=== PATIENT | female | born 1970 | race Caucasian/White ===

== ENCOUNTER 2021-01-15 12:17 | Inpatient (IN) | payer OTHER ==
[~2021-01-15] VITALS: Ht 162.6 cm; Wt 70.5 kg
[2021-01-15 13:35] LABS: HEMATOCRIT 44.6 % (36.0-47.0); HEMOGLOBIN 15.2 g/dl (12.0-15.5); MEAN CORPUSCULAR HEMOGLOBIN 28.5 pg (27.0-33.0); MEAN CORPUSCULAR HGB CONC 34.1 g/dl (32.0-36.5); MEAN CORPUSCULAR VOLUME 83.7 fl (80.0-96.0); PLATELET COUNT, AUTOMATED 314 10^3/uL (150-450); RED BLOOD COUNT 5.33 10^6/uL (4.00-5.40); WHITE BLOOD COUNT 12.5 10^3/uL (4.0-10.0)
[2021-01-15] MEDS ORDERED: LORazepam 1 MG TAB PO STA (13:53)
[2021-01-15] MEDS ORDERED: OLANZapine ORAL DISINTEGRATING TAB 5MG PO ONE (13:55)
[2021-01-15 14:08] LABS: ACETAMINOPHEN LEVEL < 2.0 UG/ML (10.0-30.0); ALBUMIN 3.8 GM/DL (3.2-5.2); ALT/SGPT 22 U/L (12-78); BILIRUBIN,DIRECT 0.1 MG/DL (0.0-0.2); BILIRUBIN,TOTAL 0.5 MG/DL (0.2-1.0); BLOOD UREA NITROGEN 9 MG/DL (7-18); CALCIUM LEVEL 8.5 MG/DL (8.5-10.1); CARBON DIOXIDE LEVEL 24 MEQ/L (21-32); CHLORIDE LEVEL 108 MEQ/L (98-107); CREATININE FOR GFR 0.78 MG/DL (0.55-1.30); ETHYL ALCOHOL (ETHANOL) < 0.003 % (0.000-0.010); GLOMERULAR FILTRATION RATE > 60.0 (>58); GLUCOSE, FASTING 122 MG/DL (70-100); POTASSIUM SERUM 3.4 MEQ/L (3.5-5.1); SALICYLATE LEVEL < 1.7 MG/DL (5.0-30.0); SODIUM LEVEL 141 MEQ/L (136-145); THYROID STIMULATING HORMONE 0.743 uIU/ML (0.358-3.740); TOTAL PROTEIN 7.8 GM/DL (6.4-8.2)
[2021-01-15 14:10] LABS: AMPHETAMINES LEVEL URINE NEGATIVE (NEGATIVE); BARBITURATES URINE NEGATIVE (NEGATIVE); BENZODIAZEPINES URINE NEGATIVE (NEGATIVE); CANNABINOIDS URINE NEGATIVE (NEGATIVE); COCAINE METABOLITE URINE NEGATIVE (NEGATIVE); METHADONE URINE NEGATIVE (NEGATIVE); OPIATES URINE NEGATIVE (NEGATIVE); PHENCYCLIDINE URINE NEGATIVE (NEGATIVE)
[2021-01-15 14:12] LABS: HCG, SERUM QUALITATIVE NEGATIVE (NEGATIVE)
[2021-01-15] MEDS ORDERED: ACETAMINOPHEN TAB 650MG DOSE (2X325MG) PO PRN (19:10)
[2021-01-15] MEDS ORDERED: traZODone 50 MG TAB PO PRN (19:10)
[2021-01-15] MEDS ORDERED: OLANZapine ORAL DISINTEGRATING TAB 5MG PO PRN (19:10)
[2021-01-15] MEDS ORDERED: MOM 30ML SUSPENSION UDC PO PRN (19:10)
[2021-01-15] MEDS ORDERED: MAALOX 30 ML SUSP *UDC PO PRN (19:10)
[2021-01-15 20:13] LABS: RSV AMPLIFICATION NEGATIVE (NEGATIVE)
[2021-01-15] MEDS ORDERED: risperiDONE 2 MG TAB PO SCH (21:00)
[2021-01-16] MEDS: NICOTINE 21MG/24HR 1 EA TRANSDERMAL TD SCH (08:48)
--- NOTE | 2021-01-16 13:26 | HPEPDOC ---
[facility] Medical History & Physical Date of Admission January 15, 2021 Date of Service: January 16, 2021 History and Physical CHIEF COMPLAINT: Routine medical exam HISTORY OF PRESENT ILLNESS: 50-year-old female with history of Graves' disease follows with an intravenous therapy nurse in [place], asthma, COPD, not oxygen or steroid dependent, admitted to the inpatient [facility] unit due to inability to care for self defecating and urinating on the floor at home. The patient otherwise denies any dysuria, urgency, frequency, fever, chills, shortness of breath, chest pain, pressure, tightness, palpitations, lightheadedness. She says that sometimes is hard to breathe through her throat but denies any dysphasia, odynophagia and follows with an intravenous therapy nurse in [place]. No other issues with airway compromise. PAST MEDICAL HISTORY: Graves' disease, asthma, COPD PAST SURGICAL HISTORY: SOCIAL HISTORY: Still smokes cigarettes. 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 Mother alive in her 70s, unknown medical problems ALLERGIES: Please see below. REVIEW OF SYSTEMS: 10 point review of systems negative aside from positive findings in HPI HOME MEDICATIONS: Please see below. PHYSICAL EXAMINATION: VITAL SIGNS: See below GENERAL APPEARANCE: No distress. Speaks in full sentences. No use of respiratory accessory muscles disheveled HEENT: No thyromegaly, no cervical lymphadenopathy. No JVD. Pupils round, reactive. Extra muscles are intact CARDIOVASCULAR: S1, S2, sinus rhythm LUNGS: Air entry is equal. No kyphosis. No wheezing, rales or rhonchi. Clear to auscultation bilaterally ABDOMEN: Positive bowel sounds, soft, nontender, nondistended, normoactive bowel sounds EXTREMITIES: No cyanosis, clubbing or edema LABORATORY DATA: See below. MICROBIOLOGY: Please see below. ASSESSMENT: 50-year-old female with history of Graves' disease follows with an intravenous therapy nurse in [place], asthma, COPD, not oxygen or steroid dependent, admitted to the inpatient [facility] unit due to inability to care for self defecating and urinating on the floor at home. The patient otherwise denies any dysuria, urgency, frequency, fever, chills, shortness of breath, chest pain, pressure, tightness, palpitations, lightheadedness. She says that sometimes is hard to breathe through her throat but denies any dysphasia, odynophagia and follows with an intravenous therapy nurse in [place]. No other issues with airway compromise. Graves' disease Asthma COPD Psychosis Tobacco abuse PLAN: If patient complains of worsening respiratory distress. Obtain CT neck with contrast, rule out airway compromise. TSH is normal. No changes in medications. Tobacco cessation counseling and nicotine patch. Outpatient follow-up with her intravenous therapy nurse within 1-2 weeks of hospital discharge. Hospitalists will sign off. Please reconsult if new medical issues arise. Vital Signs Vital Signs Date Time Temp Pulse Resp B/P (MAP) Pulse Ox O2 Delivery O2 Flow Rate FiO2 01/15/21 19:30 98.4 92 17 150/72 (98) 98 Room Air Laboratory Data Labs 24H Laboratory Tests 2 01/15/21 18:41: Coronavirus (COVID-19)(PCR) NEGATIVE, Influenza Type A (RT-PCR) NEGATIVE, Influenza Type B (RT-PCR) NEGATIVE, Respiratory Syncytial Virus (PCR) NEGATIVE Home Medications No Active Prescriptions or Reported Meds Allergies Coded Allergies: No Known Allergies (Unverified , 01/15/21) A-FIB/CHADSVASC A-FIB History Current/History of A-Fib/PAF?: No Current PO Anticoag Therapy: No Age/Risk Factor Scoring CHADSVASC: CHADSVASC Response (Comments) Value Age Risk Factor Age < 65 years old 0 Gender Risk Factor Female 1 Hx of CHF No 0 Hx of HTN No 0 Hx of Stroke/TIA/or VTE No 0 Hx of Diabetes No 0 Hx of Vascular Disease No 0 Total 1 Treatment Treatment ordered: NONE EMY HILL MD January 16, 2021 13:26
--- NOTE | 2021-01-16 15:14 | MHHPEPDOC ---
General Date Of Admission: January 15, 2021 Legal Status: 9.39 Chief Complaint "I have no idea why I am here." History of Present Illness HISTORY OF THE PRESENT ILLNESS: Patient is a 50 -year-old , Unemployed, Domiciled , female who was brought in by her mother for bizarre behaviors, delusional thinking and psychotic symptoms of auditory hallucinations. According to the ED report, patient is currently visiting her mother in family currently resides in [place]. Patient has been in the area for roughly a week. . She did not come out of her room, started using a bucket, and her room for toilet using it to urinate and then began defecating on the floor. She was making bizarre statements, stating that she will if she leaves the house. Reports that she has thyroid issues and irritable freeze her throat in the interview today. She reports that she is having trouble breathing and that her trachea is narrowing. She reported to me that she has stage IV COPD, and that she needed to be brought to the hospital because she is living with 13 other people and 5 dogs in the home making her have difficulty breathing. She states, "I have thyroid disease." Patient was very repetitive in her interview with me, stating "I have thyroid issues and have an advanced stage of COPD and have narrowing of the trachea. I have to leave because I then a [place] citizen and a resident of [place] and my is coming to get me tomorrow." Patient is not observed with any shortness of breath or difficulty breathing. She is however very hyperverbal, tangential, has rapid speech and is speaking in full and complete sentences. PER ED REPORT: Police report linda is visiting her mother (Brenna [phone]) and family (sister in law, [phone]) from [place]. Pt. sister in law reports pt. has been in area for almost one week, has been staying in her room almost exclusively. Pt. has been using bucket in her room for a toilet, has started to urinate and defecate on floor also. Pt. states she will if she leaves the house, states she has thyroid issues and that the air will freeze her throat. She has not been bathing. She has been stating that the haley and mirror are talking to her and the house is doing things to her. Sister in law states that pt. does not have a psychiatric diagnosis because she has refused to see a therapist or psychiatrist, stating her and family has thought for some time that she was in need. contact # pat-[phone]. Pt was brought in by [facility] per mother and sister. Pt has been decompensating, defecating and urinating on the floor of her bedroom, and AH, talking to haley, mirrors, and her hands. Pt brought in by [facility] after pt.s sister called the police. Pt has reportedly been going to the bathroom in buckets or on the floor of her bedroom, has been having outbursts of anger and agitation, AH, and bizarre behavior. Pt's appears disheveled and unkempt, speech is repetitive and unfocused, pressured and disorganized. Pt has to be redirected multiple times during MHE. Pt denies SI/HI, AH/VH, reports normal sleep and appetite. Pt states "I have narrowing airways, so it is really hard for me to breathe. I don't go on the stairs very well, and there are 13 people living in the house so the bathroom is full." Pt repeatedly states "I am here for my thyroid, but I am due back in [place] in a few days, so I am going to leave with my sister." TW spoke with pt.s sister Diana: Diana was in room with pt. Pt's sister reported that pt. has not received any mental health treatment or care in her life. Pt has been struggling for the last 5 years, with the last 3 years getting increasingly worse. Pt lives in [place] with her and her 2 sons, but is in [place] visiting her mother and sister. Pt's sister reports that pt. has been refusing medical treatment and skipping out on her doctors appointments for her medical complications, thyroid related. Pt's sister explains that the family has been struggling to get pt. any care or treatment in [place] and [place] for the last 5 years, this is their last option. Pt's sister states she has not left her room in approximately a week, since getting to [place]. Psychiatric Review of Systems Depression (2 or more weeks): difficulty concentrating, denies (denies clinical depression but reports taht her medical complications make her feel depressed) Janice (4 or more days of): talkativity, pressured, distractibility Psychosis: auditory hallucination, delusions, paranoia, disorganization PTSD: denies Past Psychiatric History Previous Psychiatric Diagnosis: Denies Previous Psychiatric Admissions:, Says her first psychiatric admission. Suicide Attempts:. Denies. Psychiatric Follow-up: None current. Psychiatric medications:. Denies any medications for psychiatry. Past Medical History Head Injury: No Seizures: No Hospitalizations: Yes Surgeries: Yes (. ) Family Medical/Psychiatric HX Psychiatric Disorders: Yes (. Mother thyroid issues and anxiety. Brother and sister with anger issues) Addiction: No Suicide Attemps/Completions: No Addiction History denies Social History Childhood: Patient was born in [facility] to both mother and father; states that she has a sister and a brother. Abuse/Trauma:. Denies any history of trauma. Current Living Situation:. Patient is currently staying with her mother with whom she it's visiting but she is from [place] with her . Education:. States that she received her GED in [facility]. Employment:, Not currently employed. Reports that she is ex-. 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 Social Support: Mother, sister and . Legal: None. Marital: . currently in [place] to pick her up when she is stable. Mental Status Examination General Appearance: disheveled, appears stated age, hospital scubs/clothing Build: overweight Demeanor: mistrustful (, mildly overweight), guarded Eye Contact: avoidant (patient had a blanket over her head. Most of the interview) Activity: average Behavior: cooperative Speech: clear, rapid, reg/rate,rhythm,volume Mood: other (making bizarre in delusional statements) Affect: flat, incongruent, disorganized Thought Process: tangential, loose Thought Content (Delusions): denies SI, HI, AVH, paranoia, delusions Thought Content (Other): preoccupied (somatic ), obsessional, guarded, appears paranoid Thought Content (Aggressive): none reported Perception (Hallucinations): auditory Cognition (Impairment of): memory, attention/concentration Cognition(Intelligence Est.): average Oriented: Awake, Alert, Oriented times three Insight: poor Judgment: Poor Psychosis: Denies Diagnoses Unspecified psychotic disorder Hyperthyroid Graves' disease A-FIB/CHADSVASC A-FIB History Current/History of A-Fib/PAF?: No Current PO Anticoag Therapy: No Age/Risk Factor Scoring CHADSVASC: CHADSVASC Response (Comments) Value Age Risk Factor Age < 65 years old 0 Gender Risk Factor Female 1 Hx of CHF No 0 Hx of HTN No 0 Hx of Stroke/TIA/or VTE No 0 Hx of Diabetes No 0 Hx of Vascular Disease No 0 Total 1 Assessment Patient is a 50-year-old , styled female who is currently visiting her mother from [place]. Patient has been in the area for approximately a week and her family is reporting that she stayed in her room exclusively only uses in a bucket in her room for a toilet urinating and defecating on the floor as she would if she left the home. She repeatedly states that she has thyroid issues and that her trachea is narrowing in the cold air would freeze her throat. She is quite disheveled. Hair is uncombed and she appears older than her stated age, wearing hospital scrubs. Her build is mildly overweight. She has a mistrustful and guarded demeanor. Her eye contact is avoidant throughout most of the interview, had a blanket over her head. Her activity is less than average. Her behavior was mostly cooperative, although she was guarded. Speech was rapid, spontaneous, fluid, normal volume, tone and rhythm. She reports that her mood is depressed, due to medical conditions. Her affect is inappropriate and disorganized and flat. Her thought process is loose with flight of ideas, tangential. Patient is very delusional, reporting that she has tracheal stenosis, reports that cold air will freeze her breath. She is quite paranoid. She appears guarded. She does not report any auditory or visual hallucinations, but her family did report auditory hallucinations when they brought her in her cognition is average. She is alert and oriented to person, place, time, but not to situation. Her insight and judgment is poor at this time. Patient will be admitted to my service 939 legal status. We'll start her on antipsychotic medications and medications for any agitation or anxiety. Patient to be discharged to home where we will call her spouse pick her up and bring her back to [place] when she is stable. . He is aware of her being hospitalized. He is requesting that she be completely stabilized before he is called states that she has a long history of decompensation, and he is hopeful that she will have a full recovery Initial Treatment Plan 1. Patient was admitted on a [9.39] status. 2. Complete history was obtained. 3. With patients permission, family will be contacted and database will be expanded. 4. Patients medication regimen will be reviewed and changed accordingly. 5. Patient will be provided with protected environment. 6. Patient will be treated with individual, group, and milieu therapies. 7. Patient will receive supportive psych-education. 8. Discharge planning will commence immediately. 9. Outpatient follow-up treatment will be strongly recommended. 10. The initial treatment plan will focus initially on: * Depression. * Risk for suicide. ESTIMATED LENGTH OF STAY: - DAYS. TIME SPENT COUNSELING AND COORDINATING INITIAL CARE: minutes. Incomplete r/t Pt cond. Vital Signs Vital Signs Date Time Temp Pulse Resp B/P (MAP) Pulse Ox O2 Delivery O2 Flow Rate FiO2 01/15/21 19:30 98.4 92 17 150/72 (98) 98 Room Air Laboratory Data 24H Labs Laboratory Tests 2 01/15/21 18:41: Coronavirus (COVID-19)(PCR) NEGATIVE, Influenza Type A (RT-PCR) NEGATIVE, Influenza Type B (RT-PCR) NEGATIVE, Respiratory Syncytial Virus (PCR) NEGATIVE Medications No Active Prescriptions or Reported Meds Allergies Coded Allergies: No Known Allergies (Unverified , 01/15/21) NEVIN FAY NP January 16, 2021 15:14
[2021-01-16] MEDS ORDERED: BENZTROPINE 0.5 MG TAB PO PRN (15:15)
[2021-01-16] MEDS ORDERED: hydrOXYzine 50 MG TAB PO PRN (15:15)
[2021-01-16 16:13] VITALS: BP 155/75
[2021-01-16] MEDS: haloperidoL 5 MG TAB PO SCH (21:00)
[2021-01-17 06:53] VITALS: BP 151/75
[2021-01-17] MEDS: NICOTINE 21MG/24HR 1 EA TRANSDERMAL TD SCH (09:00)
[2021-01-17] MEDS: haloperidoL 5 MG TAB PO SCH ×2 (09:34→21:00)
--- NOTE | 2021-01-17 12:29 | MHIPNPDOC ---
[facility] Progress Note Progress Note DATE OF SERVICE: 01/17/21 HISTORY: Patient is a 50 -year-old , Unemployed, Domiciled , female who was brought in by her mother for bizarre behaviors, delusional thinking and psychotic symptoms of auditory hallucinations. According to the ED report, patient is currently visiting her mother in family currently resides in [place]. Patient has been in the area for roughly a week. . She did not come out of her room, started using a bucket, and her room for toilet using it to urinate and then began defecating on the floor. She was making bizarre statements, stating that she will if she leaves the house. Reports that she has thyroid issues and irritable freeze her throat in the interview today. She reports that she is having trouble breathing and that her trachea is narrowing. She reported to me that she has stage IV COPD, and that she needed to be brought to the hospital because she is living with 13 other people and 5 dogs in the home making her have difficulty breathing. She states, "I have thyroid disease." Patient was very repetitive in her interview with me, stating "I have thyroid issues and have an advanced stage of COPD and have narrowing of the trachea. I have to leave because I then a [place] citizen and a resident of [place] and my is coming to get me tomorrow." Patient is not observed with any shortness of breath or difficulty breathing. She is however very hyperverbal, tangential, has rapid speech and is speaking in full and complete sentences. PER ED REPORT: Police report linda is visiting her mother (Brenna [phone]) and family (sister in law, [phone]) from [place]. Pt. sister in law reports pt. has been in area for almost one week, has been staying in her room almost exclusively. Pt. has been using bucket in her room for a toilet, has started to urinate and defecate on floor also. Pt. states she will if she leaves the house, states she has thyroid issues and that the air will freeze her throat. She has not been bathing. She has been stating that the haley and mirror are talking to her and the house is doing things to her. Sister in law states that pt. does not have a psychiatric diagnosis because she has refused to see a therapist or psychiatrist, stating her and family has thought for some time that she was in need. contact # pat-[phone]. Pt was brought in by [facility] per mother and sister. Pt has been decompensating, defecating and urinating on the floor of her bedroom, and AH, talking to haley, mirrors, and her hands. Pt brought in by [facility] after pt.s sister called the police. Pt has reportedly been going to the bathroom in buckets or on the floor of her bedroom, has been having outbursts of anger and agitation, AH, and bizarre behavior. Pt's appears disheveled and unkempt, speech is repetitive and unfocused, pressured and disorganized. Pt has to be redirected multiple times during MHE. Pt denies SI/HI, AH/VH, reports normal sleep and appetite. Pt states "I have narrowing airways, so it is really hard for me to breathe. I don't go on the stairs very well, and there are 13 people living in the house so the bathroom is full." Pt repeatedly states "I am here for my thyroid, but I am due back in [place] in a few days, so I am going to leave with my sister." TW spoke with pt.s sister Diana: Diana was in room with pt. Pt's sister reported that pt. has not received any mental health treatment or care in her life. Pt has been struggling for the last 5 years, with the last 3 years getting increasingly worse. Pt lives in [place] with her and her 2 sons, but is in [place] visiting her mother and sister. Pt's sister reports that pt. has been refusing medical treatment and skipping out on her doctors appointments for her medical complications, thyroid related. Pt's sister explains that the family has been struggling to get pt. any care or treatment in [place] and [place] for the last 5 years, this is their last option. Pt's sister states she has not left her room in approximately a week, since getting to [place]. VITAL SIGNS: See below. NEW TEST RESULTS: Patient has refused to be seen for a Thyroid Ultrasound CURRENT MEDICATIONS: See below. MENTAL STATUS EXAMINATION: Patient is a 50 -year-old , Unemployed, Domiciled , female who was brought in by her mother for bizarre behaviors, delusional thinking and psychotic symptoms of auditory hallucinations. General Appearance: disheveled, appears stated age, hospital scubs/clothing Build: overweight Demeanor: mistrustful (, mildly overweight), guarded Eye Contact: avoidant (patient had a blanket over her head. Most of the interview) Activity: average Behavior: cooperative Speech: clear, rapid, reg/rate,rhythm,volume Mood: other (making bizarre in delusional statements) Affect: flat, incongruent, disorganized Thought Process: tangential, loose Thought Content (Delusions): denies SI, HI, AVH, paranoia, delusions Thought Content (Other): preoccupied (somatic ), obsessional, guarded, somatic, paranoid Thought Content (Aggressive): none reported Perception (Hallucinations): auditory Cognition (Impairment of): memory, attention/concentration Cognition(Intelligence Est.): average Oriented: Awake, Alert, Oriented times three Insight: poor Judgment: Poor Psychosis: Denies DIAGNOSES: Unspecified psychotic disorder Hyperthyroid Graves' disease ASSESSMENT: Patient found sleeping in her room. 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 I have problems with my thyroid and goiter. I can't breathe cold air because it is causing my shortness of breathe, I am having difficulty breathing, I have COPD." She reports that her is coming from [place] to pick her up today, also states that her son was in a car accident and that she needs to return home. States that her drinks and that he is not a good collateral for her health issues. Patient continues to report that she is having difficulty breathing but she is hyperverbal and tangential and is speaking in full in complete sentences without difficulty. Her breathing is regular and full expansion of her diaphragm. Per her family, she has been having somatic complaints for several years but has refused to be seen by any providers. Patient continues to demonstrate poor insight and judgement and psychotic symptoms. MANAGEMENT PLAN: Continue all medications as ordered. Patient to start Zoloft 25 mg daily for her report of depression. Discharge when stable TIME SPENT: 25 minutes. Vital Signs Vital Signs Date Time Temp Pulse Resp B/P (MAP) Pulse Ox O2 Delivery O2 Flow Rate FiO2 01/17/21 06:53 99.7 86 17 151/75 (100) 96 Room Air Current Medications Current Medications Medications (Trade) Dose Ordered Sig/Pearl Route PRN Reason Start Time Stop Time Status Last Admin Dose Admin Acetaminophen (Tylenol Tab) 650 mg Q6HP PRN PO HEADACHE or DISCOMFORT 01/15/21 19:10 Al Hydrox/Mg Hydrox/Simethicone (Mylanta) 30 ml Q4HP PRN PO HEARTBURN/INDIGESTION 01/15/21 19:10 Benztropine Mesylate (Cogentin) 0.5 mg BIDP PRN PO EPS 01/16/21 15:15 Haloperidol (Haldol) 5 mg BID PO 01/16/21 21:00 01/17/21 09:34 Home Med (Med Rec Complete!) ASDIRECTED XX 01/15/21 19:55 01/15/21 19:58 DC Hydroxyzine HCl (Atarax) 50 mg Q6HP PRN PO ANXIETY 01/16/21 15:15 Lorazepam (Ativan) 1 mg STAT STAT PO 01/15/21 13:53 01/15/21 13:54 DC 01/15/21 18:50 Magnesium Hydroxide (Milk Of Magnesia) 30 ml DAILYPRN PRN PO CONSTIPATION 01/15/21 19:10 Nicotine (Nicoderm Cq 21mg) 1 patch DAILY TD 01/16/21 09:00 Olanzapine (ZyPREXA ZYDIS) 5 mg Q6HP PRN PO ANXIETY/AGITATION 01/15/21 19:10 Risperidone (RisperDAL) 2 mg QHS PO 01/15/21 21:00 01/16/21 15:16 DC 01/15/21 21:18 Trazodone HCl (Desyrel) 50 mg QHSP PRN PO INSOMNIA 01/15/21 19:10 Allergies Coded Allergies: No Known Allergies (Unverified , 01/15/21) NEVIN FAY GIZZARD PEELER January 17, 2021 12:29
[2021-01-17] MEDS: SERTRALINE HCL 25 MG TABLET PO SCH (12:54)
[2021-01-17 16:21] VITALS: BP 140/73
[2021-01-18 06:32] VITALS: BP 158/70
[2021-01-18] MEDS: NICOTINE 21MG/24HR 1 EA TRANSDERMAL TD SCH (09:00)
[2021-01-18] MEDS: SERTRALINE HCL 25 MG TABLET PO SCH (09:57)
[2021-01-18] MEDS: haloperidoL 5 MG TAB PO SCH ×2 (09:57→20:50)
--- NOTE | 2021-01-18 13:03 | MHIPNPDOC ---
[facility] Progress Note Progress Note DATE OF SERVICE: 01/18/21 HISTORY: Patient is a 50 -year-old , Unemployed, Domiciled , female who was brought in by her mother for bizarre behaviors, delusional thinking and psychotic symptoms of auditory hallucinations. According to the ED report, patient is currently visiting her mother in family currently resides in [place]. Patient has been in the area for roughly a week. . She did not come out of her room, started using a bucket, and her room for toilet using it to urinate and then began defecating on the floor. She was making bizarre stat ements, stating that she will if she leaves the house. Reports that she has thyroid issues and irritable freeze her throat in the interview today. She reports that she is having trouble breathing and that her trachea is narrowing. She reported to me that she has stage IV COPD, and that she needed to be brought to the hospital because she is living with 13 other people and 5 dogs in the home making her have difficulty breathing. She states, "I have thyroid disease." Patient was very repetitive in her interview with me, stating "I have thyroid issues and have an advanced stage of COPD and have narrowing of the trachea. I have to leave because I then a [place] citizen and a resident of [place] and my is coming to get me tomorrow." Patient is not observed with any shortness of breath or difficulty breathing. She is however very hyperverbal, tangential, has rapid speech and is speaking in full and complete sentences. PER ED REPORT: Police report linda is visiting her mother (Brenna [phone]) and family (sister in law, Sejsa-[phone]) from [place]. Pt. sister in law reports pt. has been in area for almost one week, has been staying in her room almost exclusively. Pt. has been using bucket in her room for a toilet, has started to urinate and defecate on floor also. Pt. states she will if she leaves the house, states she has thyroid issues and that the air will freeze her throat. She has not been bathing. She has been stating that the haley and mirror are talking to her and the house is doing things to her. Sister in law states that pt. does not have a psychiatric diagnosis because she has refused to see a therapist or psychiatrist, stating her and family has thought for some time that she was in need. contact # pat-[phone]. Pt was brought in by [facility] per mother and sister. Pt has been decompensating, defecating and urinating on the floor of her bedroom, and AH, talking to haley, mirrors, and her hands. Pt brought in by [facility] after pt.s sister called the police. Pt has reportedly been going to the bathroom in buckets or on the floor of her bedroom, has been having outbursts of anger and agitation, AH, and bizarre behavior. Pt's appears disheveled and unkempt, speech is repetitive and unfocused, pressured a nd disorganized. Pt has to be redirected multiple times during MHE. Pt denies SI/HI, AH/VH, reports normal sleep and appetite. Pt states "I have narrowing airways, so it is really hard for me to breathe. I don't go on the stairs very well, and there are 13 people living in the house so the bathroom is full." Pt repeatedly states "I am here for my thyroid, but I am due back in [place] in a few days, so I am going to leave with my sister." VITAL SIGNS: See below. CURRENT MEDICATIONS: See below. MENTAL STATUS EXAMINATION: Patient is a 50 -year-old , Unemployed, Domiciled , female who was brought in by her mother for bizarre behaviors, delusional thinking and psychotic symptoms of auditory hallucinations. Speech: Is spontaneous, impoverished, slow rate and low volume Language skills are intact Thought processes including: disorganized at times Thought content: denies depression, anxiety, SI/HI Abstract reasoning, and computation: fair Description of associations: somatic complaints about sh ortness of breathe Description of abnormal or psychotic thoughts: Delusional thoughts about her trachea being too small. Judgment: poor Insight: poor Orientation: Alert and oriented to person, place. time but not to situation Recent and remote memory: intact Attention span and concentration: fair Language: expansive Fund of knowledge: average Mood: Euthymic Affect: Flat DIAGNOSES: Unspecified psychotic disorder Hyperthyroid Graves' disease ASSESSMENT: Patient found in her room, blanket over her head, does not engage in the interview. Patient answer yes to all the questions, was asked to pull blanket from her head, appears apathetic, disheveled and unkempt. Patient is continuing her behaviors of staying in her room. She was encouraged to be out of the room, attend groups and take all medications. Reinforced with her that following treatment will stabilize her and she will be discharged. Reinforced that her poor compliance to treatment and continued instability will delay her return to [place]. Patient had refused two doses of Haldol. Patient continues to have delusional thoughts about her breathing and tracheal stenosis. She states that she cannot breathe, has difficulty breathing as she speaks in full and clear sentences with no posturing, no cyanotic symptoms. MANAGEMENT PLAN: Continue all medications, will discharge when stable TIME SPENT: 25 minutes. Vital Signs Vital Signs Date Time Temp Pulse Resp B/P (MAP) Pulse Ox O2 Delivery O2 Flow Rate FiO2 01/18/21 06:32 98.2 73 20 158/70 (99) 95 Room Air Current Medications Current Medications Medications (Trade) Dose Ordered Sig/Pearl Route PRN Reason Start Time Stop Time Status Last Admin Dose Admin Acetaminophen (Tylenol Tab) 650 mg Q6HP PRN PO HEADACHE or DISCOMFORT 01/15/21 19:10 Al Hydrox/Mg Hydrox/Simethicone (Mylanta) 30 ml Q4HP PRN PO HEARTBURN/INDIGESTION 01/15/21 19:10 Benztropine Mesylate (Cogentin) 0.5 mg BIDP PRN PO EPS 01/16/21 15:15 Haloperidol (Haldol) 5 mg BID PO 01/16/21 21:00 01/18/21 09:57 Home Med (Med Rec Complete!) ASDIRECTED XX 01/15/21 19:55 01/15/21 19:58 DC Hydroxyzine HCl (Atarax) 50 mg Q6HP PRN PO ANXIETY 01/16/21 15:15 Lorazepam (Ativan) 1 mg STAT STAT PO 01/15/21 13:53 01/15/21 13:54 DC 01/15/21 18:50 Magnesium Hydroxide (Milk Of Magnesia) 30 ml DAILYPRN PRN PO CONSTIPATION 01/15/21 19:10 Nicotine (Nicoderm Cq 21mg) 1 patch DAILY TD 01/16/21 09:00 Olanzapine (ZyPREXA ZYDIS) 5 mg Q6HP PRN PO ANXIETY/AGITATION 01/15/21 19:10 Risperidone (RisperDAL) 2 mg QHS PO 01/15/21 21:00 01/16/21 15:16 DC 01/15/21 21:18 Sertraline HCl (Zoloft) 25 mg QAM PO 01/17/21 09:00 01/18/21 09:57 Trazodone HCl (Desyrel) 50 mg QHSP PRN PO INSOMNIA 01/15/21 19:10 Allergies Coded Allergies: No Known Allergies (Unverified , 01/15/21) NEVIN FAY NP January 18, 2021 13:03
[2021-01-18 16:36] VITALS: BP 140/68
[2021-01-19 07:01] VITALS: BP 154/70
[2021-01-19] MEDS: NICOTINE 21MG/24HR 1 EA TRANSDERMAL TD SCH (08:42)
[2021-01-19] MEDS: SERTRALINE HCL 25 MG TABLET PO SCH (08:43)
[2021-01-19] MEDS: haloperidoL 5 MG TAB PO SCH (08:43)
[2021-01-19 10:20] LABS: CHOLESTEROL RISK RATIO 5.925 (<5)
--- NOTE | 2021-01-19 11:29 | MHIPNPDOC ---
[facility] Progress Note Progress Note DATE OF SERVICE: 01/19/21 HISTORY:Patient is a 50 -year-old , Unemployed, Domiciled , female who was brought in by her mother for bizarre behaviors, delusional thinking and psychotic symptoms of auditory hallucinations. According to the ED report, patient is currently visiting her mother in family currently resides in [place]. Patient has been in the area for roughly a week. . She did not come out of her room, started using a bucket, and her room for toilet using it to urinate and then began defecating on the floor. She was making bizarre statements, stating that she will if she leaves the house. Reports that she has thyroid issues and irritable freeze her throat in the interview today. She reports that she is having trouble breathing and that her trachea is narrowing. She reported to me that she has stage IV COPD, and that she needed to be brought to the hospital because she is living with 13 other people and 5 dogs in the home making her have difficulty breathing. She states, "I have thyroid disease." Patient was very repetitive in her interview with me, stating "I have thyroid issues and have an advanced stage of COPD and have narrowing of the trachea. I have to leave because I then a [place] citizen and a resident of [place] and my is coming to get me tomorrow." Patient is not observed with any shortness of breath or difficulty breathing. She is however very hyperverbal, tangential, has rapid speech and is speaking in full and complete sentences. PER ED REPORT: Police report linda is visiting her mother (Brenna [phone]) and family (sister in law, Eyamy-[phone]) from [place]. Pt. sister in law reports pt. has been in area for almost one week, has been staying in her room almost exclusively. Pt. has been using bucket in her room for a toilet, has st arted to urinate and defecate on floor also. Pt. states she will if she leaves the house, states she has thyroid issues and that the air will freeze her throat. She has not been bathing. She has been stating that the haley and mirror are talking to her and the house is doing things to her. Sister in law states that pt. does not have a psychiatric diagnosis because she has refused to see a therapist or psychiatrist, stating her and family has thought for some time that she was in need. contact # pat-[phone]. Pt was brought in by [facility] per mother and sister. Pt has been decompensating, defecating and urinating on the floor of her bedroom, and AH, talking to haley, mirrors, and her hands. Pt brought in by [facility] after pt.s sister called the police. Pt has reportedly been going to the bathroom in buckets or on the floor of her bedroom, has been having outbursts of anger and agitation, AH, and bizarre behavior. Pt's appears disheveled and unkempt, speech is repetitive and unfocused, pressured and disorganized. Pt has to be redirected multiple times during MHE. Pt denies SI/HI, AH/VH, reports normal sleep and appetite. Pt states "I have narrowing airways, so it is really hard for me to breathe. I don't go on the stairs very w ell, and there are 13 people living in the house so the bathroom is full." Pt repeatedly states "I am here for my thyroid, but I am due back in [place] in a few days, so I am going to leave with my sister." VITAL SIGNS: See below. CURRENT MEDICATIONS: See below. MENTAL STATUS EXAMINATION: Patient is a 50 -year-old , Unemployed, Domiciled , female who was brought in by her mother for bizarre behaviors, delusional thinking and psychotic symptoms of auditory hallucinations. Speech: Is spontaneous, impoverished, slow rate and low volume Language skills are intact Thought processes including: perseveration of her breathing Thought content: denies depression, reporting anxiety, SI/HI Abstract reasoning, and computation: fair Description of associations: somatic complaints about shortness of breathe Description of abnormal or psychotic thoughts: Delusional thoughts about her trachea being too small. Judgment: poor Insight: poor Orientation: Alert and oriented to person, place. time but not to situation Recent and remote memory: intact Attention span and concentration: fair Language: expansive Fund of knowledge: average Mood: Euthymic Affect: Flat DIAGNOSES: Unspecified psychotic disorder Hyperthyroid Graves' disease ASSESSMENT: Patient agreeable to meeting in an interview room. Pt states she is not feeling well. Report lower back pain, shortness of breath, shoulder pain and chest pain x 2. Reports that she is waiting for clothes to be brought in before she can shower. Reports that she is taking her medications. Denies depression, reports anxiety and states that she took Ativan. Denies AH/VH. 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 Patient is guarded and withdrawn, continues to have perseveration about somatic complaints, no attention to her ADLs- she is unkempt and disheveled. MANAGEMENT PLAN: Continue all medications, will discharge when stable TIME SPENT: 25 minutes. Vital Signs Vital Signs Date Time Temp Pulse Resp B/P (MAP) Pulse Ox O2 Delivery O2 Flow Rate FiO2 01/19/21 07:01 97.6 79 17 154/70 (98) 100 Room Air Laboratory Data 24H Labs Laboratory Tests 2 01/19/21 09:25: Triglycerides Level 207H, Total Cholesterol 160, LDL Cholesterol 92, Non-HDL Cholesterol (LDL + VLDL) 133, Total HDL Cholesterol 27L, Cholesterol/HDL Ratio 5.925H Current Medications Current Medications Medications (Trade) Dose Ordered Sig/Pearl Route PRN Reason Start Time Stop Time Status Last Admin Dose Admin Acetaminophen (Tylenol Tab) 650 mg Q6HP PRN PO HEADACHE or DISCOMFORT 01/15/21 19:10 Al Hydrox/Mg Hydrox/Simethicone (Mylanta) 30 ml Q4HP PRN PO HEARTBURN/INDIGESTION 01/15/21 19:10 Benztropine Mesylate (Cogentin) 0.5 mg BIDP PRN PO EPS 01/16/21 15:15 Haloperidol (Haldol) 5 mg BID PO 01/16/21 21:00 01/19/21 09:03 DC 01/19/21 08:43 Haloperidol (Haldol) 10 mg DAILY PO 01/20/21 09:00 Home Med (Med Rec Complete!) ASDIRECTED XX 01/15/21 19:55 01/15/21 19:58 DC Hydroxyzine HCl (Atarax) 50 mg Q6HP PRN PO ANXIETY 01/16/21 15:15 Lorazepam (Ativan) 1 mg STAT STAT PO 01/15/21 13:53 01/15/21 13:54 DC 01/15/21 18:50 Magnesium Hydroxide (Milk Of Magnesia) 30 ml DAILYPRN PRN PO CONSTIPATION 01/15/21 19:10 Nicotine (Nicoderm Cq 21mg) 1 patch DAILY TD 01/16/21 09:00 Olanzapine (ZyPREXA ZYDIS) 5 mg Q6HP PRN PO ANXIETY/AGITATION 01/15/21 19:10 Risperidone (RisperDAL) 2 mg QHS PO 01/15/21 21:00 01/16/21 15:16 DC 01/15/21 21:18 Sertraline HCl (Zoloft) 25 mg QAM PO 01/17/21 09:00 01/19/21 09:03 DC 01/19/21 08:43 Sertraline HCl (Zoloft) 50 mg QAM PO 01/20/21 09:00 Trazodone HCl (Desyrel) 50 mg QHSP PRN PO INSOMNIA 01/15/21 19:10 Allergies Coded Allergies: No Known Allergies (Unverified , 01/15/21) NEVIN FAY NP January 19, 2021 11:29
[2021-01-19 16:33] VITALS: BP 150/76
[2021-01-20 06:22] VITALS: BP 146/73
[2021-01-20] MEDS: NICOTINE 21MG/24HR 1 EA TRANSDERMAL TD SCH (09:00)
[2021-01-20] MEDS: SERTRALINE HCL 50 MG TAB PO SCH (09:01)
--- NOTE | 2021-01-20 13:23 | MHIPN ---
[facility] PROGRESS NOTE DATE: 01/20/2021 VITAL SIGNS: Blood pressure 146/73, pulse 57, temperature 98.5. This is a video assessment. She is seen in the presence of staff. She is in the hospital. I am at home. CHIEF COMPLAINT: Says feels "so-so." SUBJECTIVE: Seen for followup. Indicates has been feeling okay, then shakes her right hand in a gesture to indicate "so-so." She says slept okay but is not quite sure. Says had woken up a fair amount of times. Appetite okay. Says has spoken with her mother. She indicates her mother lives here, as does her sister but is not quite clear. She says she herself lives in [place]. Has essentially been visiting her mother. MENTAL STATUS EXAMINATION: A bit unkempt, cooperative. No agitation. No psychomotor retardation. Affect is restricted in range. No evidence of any thoughts of harming herself or anyone else, nor of any psychosis. Cognition is grossly intact. Judgment and insight are compromised. ASSESSMENT: Unspecified psychotic disorder. Consider schizoaffective disorder. PLAN: Continue current care, including the sertraline and haloperidol. I would suggest obtaining collateral information, encouraging her to participate in activities in the unit as tolerated, and further recommendations are to be made depending on the clinical picture. A collateral history will be important in helping arrive at a diagnosis as well.
[2021-01-20 16:19] VITALS: BP 142/85
[2021-01-21 06:33] VITALS: BP 129/58
[2021-01-21] MEDS: SERTRALINE HCL 50 MG TAB PO SCH (08:07)
[2021-01-21] MEDS: NICOTINE 21MG/24HR 1 EA TRANSDERMAL TD SCH (08:07)
[2021-01-21 16:30] VITALS: BP 135/61
[2021-01-22 06:40] VITALS: BP 117/55
[2021-01-22] MEDS: NICOTINE 21MG/24HR 1 EA TRANSDERMAL TD SCH (09:00)
[2021-01-22] MEDS: SERTRALINE HCL 50 MG TAB PO SCH (09:14)
[2021-01-22 19:27] VITALS: BP 129/81
[2021-01-23 06:31] VITALS: BP 143/71
[2021-01-23] MEDS: SERTRALINE HCL 50 MG TAB PO SCH (08:55)
[2021-01-23] MEDS: NICOTINE 21MG/24HR 1 EA TRANSDERMAL TD SCH (08:57)
--- NOTE | 2021-01-23 14:10 | MHIPNPDOC ---
[facility] Progress Note Progress Note Date of Service 01/23/21 HISTORY:Patient is a 50 -year-old , Unemployed, Domiciled , female who was brought in by her mother for bizarre behaviors, delusional thinking and psychotic symptoms of auditory hallucinations. According to the ED report, patient is currently visiting her mother in family currently resides in [place]. Patient has been in the area for roughly a week. . She did not come out of her room, started using a bucket, and her room for toilet using it to urinate and then began defecating on the floor. She was making bizarre stateme nts, stating that she will if she leaves the house. Reports that she has thyroid issues and irritable freeze her throat in the interview today. She reports that she is having trouble breathing and that her trachea is narrowing. She reported to me that she has stage IV COPD, and that she needed to be brought to the hospital because she is living with 13 other people and 5 dogs in the home making her have difficulty breathing. She states, "I have thyroid disease." Patient was very repetitive in her interview with me, stating "I have thyroid issues and have an advanced stage of COPD and have narrowing of the trachea. I have to leave because I then a [place] citizen and a resident of [place] and my is coming to get me tomorrow." Patient is not observed with any shortness of breath or difficulty breathing. She is however very hyperverbal, tangential, has rapid speech and is speaking in full and complete sentences. PER ED REPORT: Police report linda is visiting her mother (Brenna [phone]) and family (sister in law, Ykbup-[phone]) from [place]. Pt. sister in law reports pt. has been in area for almost one week, has been staying in her room almost exclusively. Pt. has been using bucket in her room for a toilet, has started to urinate and defecate on floor also. Pt. states she will if she leaves the house, states she has thyroid issues and that the air will freeze her throat. She has not been bathing. She has been stating that the haley and mirror are talking to her and the house is doing things to her. Sister in law states that pt. does not have a psychiatric diagnosis because she has refused to see a therapist or psychiatrist, stating her and family has thought for some time that she was in need. contact # pat-[phone]. Pt was brought in by [facility] per mother and sister. Pt has been decompensating, defecating and urinating on the floor of her bedroom, and AH, talking to haley, mirrors, and her hands. Pt brought in by [facility] after pt.s sister called the police. Pt has reportedly been going to the bathroom in buckets or on the floor of her bedroom, has been having outbursts of anger and agitation, AH, and bizarre behavior. Pt's appears disheveled and unkempt, speech is repetitive and unfocused, pressured and disorganized. Pt has to be redirected multiple times during MHE. Pt denies SI/HI, AH/VH, reports normal sleep and appetite. Pt states "I have narrowing airways, so it is really hard for me to breathe. I don't go on the stairs very well, and there are 13 people living in the house so the bathroom is full." Pt repeatedly states "I am here for my thyroid, but I am due back in [place] in a few days, so I am going to leave with my sister." VITAL SIGNS: See below. CURRENT MEDICATIONS: See below. MENTAL STATUS EXAMINATION: Patient is a 50 -year-old , Unemployed, Domiciled , female who was brought in by her mother for bizarre behaviors, delusional thinking and psychotic symptoms of auditory hallucinations. Speech: Is spontaneous, impoverished, slow rate and low volume Language skills are intact Thought processes including: perseveration of her breathing Thought content: denies depression, reporting anxiety, SI/HI Abstract reasoning, and computation: fair Description of associations: somatic complaints about shortness of breathe Description of abnormal or psychotic thoughts: Delusional thoughts about her trachea being frozen Judgment: poor Insight: poor Orientation: Alert and oriented to person, place. time but not to situation Recent and remote memory: intact Attention span and concentration: fair Language: expansive Fund of knowledge: average Mood: Euthymic Affect: Constricted DIAGNOSES: Unspecified psychotic disorder rule out Schizophrenia Disorder Hyperthyroid Graves' disease ASSESSMENT: Patient has been refusing to participate in milieu, has not showered and states that she cannot shower or attend groups because she has difficulty breathing because her thyroid and goiter is frozen. She continues to be delusional about her thyroid and breathing. She has been focused on this throughout her hospitalization. She reports depression due to her delusional thoughts about her thyroid and shortness of breath. Patient has been directed to attend groups and her ADLs. MANAGEMENT PLAN: Continue all medications,increase Haldol to 15 mg in AM TIME SPENT: 25 minutes. Vital Signs Vital Signs Date Time Temp Pulse Resp B/P (MAP) Pulse Ox O2 Delivery O2 Flow Rate FiO2 01/23/21 06:31 98.6 72 18 143/71 (95) 94 Room Air Current Medications Current Medications Medications (Trade) Dose Ordered Sig/Pearl Route PRN Reason Start Time Stop Time Status Last Admin Dose Admin Acetaminophen (Tylenol Tab) 650 mg Q6HP PRN PO HEADACHE or DISCOMFORT 01/15/21 19:10 01/19/21 20:22 Al Hydrox/Mg Hydrox/Simethicone (Mylanta) 30 ml Q4HP PRN PO HEARTBURN/INDIGESTION 01/15/21 19:10 Benztropine Mesylate (Cogentin) 0.5 mg BIDP PRN PO EPS 01/16/21 15:15 Haloperidol (Haldol) 5 mg BID PO 01/16/21 21:00 01/19/21 09:03 DC 01/19/21 08:43 Haloperidol (Haldol) 10 mg DAILY PO 01/20/21 09:00 01/23/21 11:34 DC 01/23/21 08:55 Haloperidol (Haldol) 15 mg DAILY PO 01/24/21 09:00 Home Med (Med Rec Complete!) ASDIRECTED XX 01/15/21 19:55 01/15/21 19:58 DC Hydroxyzine HCl (Atarax) 50 mg Q6HP PRN PO ANXIETY 01/16/21 15:15 Lorazepam (Ativan) 1 mg STAT STAT PO 01/15/21 13:53 01/15/21 13:54 DC 01/15/21 18:50 Magnesium Hydroxide (Milk Of Magnesia) 30 ml DAILYPRN PRN PO CONSTIPATION 01/15/21 19:10 Nicotine (Nicoderm Cq 21mg) 1 patch DAILY TD 01/16/21 09:00 Olanzapine (ZyPREXA ZYDIS) 5 mg Q6HP PRN PO ANXIETY/AGITATION 01/15/21 19:10 Risperidone (RisperDAL) 2 mg QHS PO 01/15/21 21:00 01/16/21 15:16 DC 01/15/21 21:18 Sertraline HCl (Zoloft) 25 mg QAM PO 01/17/21 09:00 01/19/21 09:03 DC 01/19/21 08:43 Sertraline HCl (Zoloft) 50 mg QAM PO 01/20/21 09:00 01/23/21 08:55 Trazodone HCl (Desyrel) 50 mg QHSP PRN PO INSOMNIA 01/15/21 19:10 Allergies Coded Allergies: No Known Allergies (Unverified , 01/15/21) NEVIN FAY [employer] Jan 23, 2021 14:10
--- NOTE | 2021-01-23 15:52 | REP ---
INDICATION: sob r/o thyroid mass. h/o graves.. COMPARISON: None. TECHNIQUE: Real-time sonographic evaluation of thyroid performed. FINDINGS: Both lobes of the thyroid are mildly prominent in size, with diffuse heterogeneous echotexture. No discrete cystic or solid nodule is seen. The right lobe measures 4.8 x 2.6 x 2.5 cm and left lobe 4.7 x 2.2 x 2.3 cm. IMPRESSION: Mildly enlarged thyroid with no discrete cystic or solid mass. <Electronically signed by Demian Angel > 01/23/21 1549
[2021-01-23 18:13] VITALS: BP 147/84
[2021-01-24 06:00] VITALS: BP 126/61
[2021-01-24] MEDS: SERTRALINE HCL 50 MG TAB PO SCH (08:57)
[2021-01-24] MEDS: NICOTINE 21MG/24HR 1 EA TRANSDERMAL TD SCH (08:58)
--- NOTE | 2021-01-24 15:43 | MHIPNPDOC ---
[facility] Progress Note Progress Note DATE OF SERVICE: 01/24/21 HISTORY: Patient is a 50 -year-old , Unemployed, Domiciled , female who was brought in by her mother for bizarre behaviors, delusional thinking and psychotic symptoms of auditory hallucinations. According to the ED report, patient is currently visiting her mother in family currently resides in [place]. Patient has been in the area for roughly a week. . She did not come out of her room, started using a bucket, and her room for toilet using it to urinate and then began defecating on the floor. She was making bizarre statements, stating that she will if she leaves the house. Reports that she has thyroid issues and irritable freeze her throat in the interview today. She reports that she is having trouble breathing and that her trachea is narrowing. She reported to me that she has stage IV COPD, and that she needed to be brought to the hospital because she is living with 13 other people and 5 dogs in the home making her have difficulty breathing. She states, "I have thyroid disease." Patient was very repetitive in her interview with me, stating "I have thyroid issues and have an advanced stage of COPD and have narrowing of the trachea. I have to leave because I then a [place] citizen and a resident of [place] and my is coming to get me tomorrow." Patient is not observed with any shortness of breath or difficulty breathing. She is however very hyperverbal, tangential, has rapid speech and is speaking in full and complete sentences. PER ED REPORT: Police report linda is visiting her mother (Brenna [phone]) and family (sister in law, [phone]) from [place]. Pt. sister in law reports pt. has been in area for almost one week, has been staying in her room almost exclusively. Pt. has been using bucket in her room for a toilet, has started to urinate and defecate on floor also. Pt. states she will if she leaves the house, states she has thyroid issues and that the air will freeze her throat. She has not been bathing. She has been stating that the haley and mirror are talking to her and the house is doing things to her. Sister in law states that pt. does not have a psychiatric diagnosis because she has refused to see a therapist or psychiatrist, stating her and family has thought for some time that she was in need. contact # pat-[phone]. Pt was brought in by [facility] per mother and sister. Pt has been decompensating, defecating and urinating on the floor of her bedroom, and AH, talking to haley, mirrors, and her hands. Pt brought in by [facility] after pt.s sister called the police. Pt has reportedly been going to the bathroom in buckets or on the floor of her bedroom, has been having outbursts of anger and agitation, AH, and bizarre behavior. Pt's appears disheveled and unkempt, speech is repetitive and unfocused, pressured and disorganized. Pt has to be redirected multiple times during MHE. Pt denies SI/HI, AH/VH, reports normal sleep and appetite. Pt states "I have narrowing airways, so it is really hard for me to breathe. I don't go on the stairs very well, and there are 13 people living in the house so the bathroom is full." Pt repeatedly states "I am here for my thyroid, but I am due back in [place] in a few days, so I am going to leave with my sister." VITAL SIGNS: See below. CURRENT MEDICATIONS: See below. MENTAL STATUS EXAMINATION: Patient is a 50 -year-old , Unemployed, Domiciled , female who was brought in by her mother for bizarre behaviors, delusional thinking and psychotic symptoms of auditory hallucinations. Speech: Is impoverished Language skills are inconsistent Thought processes including: perseveration of poor breathing Thought content: unable to ascertain Abstract reasoning, and computation: fair Description of associations: unable to ascertain Description of abnormal or psychotic thoughts: Delusional thoughts about her trachea being frozen Judgment: poor Insight: poor Orientation: Alert and oriented to person, place. time but not to situation Recent and remote memory: intact Attention span and concentration: fair Language: expansive Fund of knowledge: average Mood: unable to ascertain Affect: unable to ascertain DIAGNOSES: Unspecified psychotic disorder rule out Schizophrenia Disorder Hyperthyroid Graves' disease ASSESSMENT: Patient found in her room with blanket over her head, she refused to speak to provider. According to staff, she has remained in bed all of this shift and has refused to speak to anyone. Will continue to encourage therapy sessions and being compliant in the milieu, she continues to be psychotic with no changes or improvements. Have increased Haldol to 15 mg. MANAGEMENT PLAN: Continue all medications,increase Haldol to 15 mg in AM TIME SPENT: 15 minutes. Vital Signs Vital Signs Date Time Temp Pulse Resp B/P (MAP) Pulse Ox O2 Delivery O2 Flow Rate FiO2 01/24/21 06:00 97.4 63 18 126/61 (82) 96 Room Air Current Medications Current Medications Medications (Trade) Dose Ordered Sig/Pearl Route PRN Reason Start Time Stop Time Status Last Admin Dose Admin Acetaminophen (Tylenol Tab) 650 mg Q6HP PRN PO HEADACHE or DISCOMFORT 01/15/21 19:10 01/19/21 20:22 Al Hydrox/Mg Hydrox/Simethicone (Mylanta) 30 ml Q4HP PRN PO HEARTBURN/INDIGESTION 01/15/21 19:10 Benztropine Mesylate (Cogentin) 0.5 mg BIDP PRN PO EPS 01/16/21 15:15 Haloperidol (Haldol) 5 mg BID PO 01/16/21 21:00 01/19/21 09:03 DC 01/19/21 08:43 Haloperidol (Haldol) 10 mg DAILY PO 01/20/21 09:00 01/23/21 11:34 DC 01/23/21 08:55 Haloperidol (Haldol) 15 mg DAILY PO 01/24/21 09:00 01/24/21 08:58 Home Med (Med Rec Complete!) ASDIRECTED XX 01/15/21 19:55 01/15/21 19:58 DC Hydroxyzine HCl (Atarax) 50 mg Q6HP PRN PO ANXIETY 01/16/21 15:15 Lorazepam (Ativan) 1 mg STAT STAT PO 01/15/21 13:53 01/15/21 13:54 DC 01/15/21 18:50 Magnesium Hydroxide (Milk Of Magnesia) 30 ml DAILYPRN PRN PO CONSTIPATION 01/15/21 19:10 Nicotine (Nicoderm Cq 21mg) 1 patch DAILY TD 01/16/21 09:00 Olanzapine (ZyPREXA ZYDIS) 5 mg Q6HP PRN PO ANXIETY/AGITATION 01/15/21 19:10 Risperidone (RisperDAL) 2 mg QHS PO 01/15/21 21:00 01/16/21 15:16 DC 01/15/21 21:18 Sertraline HCl (Zoloft) 25 mg QAM PO 01/17/21 09:00 01/19/21 09:03 DC 01/19/21 08:43 Sertraline HCl (Zoloft) 50 mg QAM PO 01/20/21 09:00 01/24/21 08:57 Trazodone HCl (Desyrel) 50 mg QHSP PRN PO INSOMNIA 01/15/21 19:10 Allergies Coded Allergies: No Known Allergies (Unverified , 01/15/21) NEVIN FAY NP Jan 24, 2021 14:52
[2021-01-24 16:31] VITALS: BP 118/73
[2021-01-25 07:25] VITALS: BP 124/87
[2021-01-25] MEDS: NICOTINE 21MG/24HR 1 EA TRANSDERMAL TD SCH (09:00)
[2021-01-25] MEDS ORDERED: haloperidoL 5 MG TAB PO SCH (09:45)
[2021-01-25] MEDS: haloperidoL 5 MG TAB PO SCH (09:55)
[2021-01-25] MEDS: SERTRALINE HCL 50 MG TAB PO SCH (09:55)
--- NOTE | 2021-01-25 12:39 | MHIPNPDOC ---
[facility] Progress Note Progress Note DATE OF SERVICE: 01/25/21 HISTORY: Patient is a 50 -year-old , Unemployed, Domiciled , female who was brought in by her mother for bizarre behaviors, delusional thinking and psychotic symptoms of auditory hallucinations. According to the ED report, patient is currently visiting her mother in family currently resides in [place]. Patient has been in the area for roughly a week. . She did not come out of her room, started using a bucket, and her room for toilet using it to urinate and then began defecating on the floor. She was making bizarre statements, stating that she will if she leaves the house. Reports that she has thyroid issues and irritable freeze her throat in the interview today. She reports that she is having trouble breathing and that her trachea is narrowing. She reported to me that she has stage IV COPD, and that she needed to be brought to the hospital because she is living with 13 other people and 5 dogs in the home making her have difficulty breathing. She states, "I have thyroid disease." Patient was very repetitive in her interview with me, stating "I have thyroid issues and have an advanced stage of COPD and have narrowing of the trachea. I have to leave because I then a [place] citizen and a resident of [place] and my is coming to get me tomorrow." Patient is not observed with any shortness of breath or difficulty breathing. She is however very hyperverbal, tangential, has rapid speech and is speaking in full and complete sentences. PER ED REPORT: Police report linda is visiting her mother (Brenna [phone]) and family (sister in law, [id number]-[phone]) from [place]. Pt. sister in law reports pt. has been in area for almost one week, has been staying in her room almost exclusively. Pt. has been using bucket in her room for a toilet, has started to urinate and defecate on floor also. Pt. states she will if she leaves the house, states she has thyroid issues and that the air will freeze her throat. She has not been bathing. She has been stating that the haley and mirror are talking to her and the house is doing things to her. Sister in law states that pt. does not have a psychiatric diagnosis because she has refused to see a therapist or psychiatrist, stating her and family has thought for some time that she was in need. contact # pat-[phone]. Pt was brought in by [facility] per mother and sister. Pt has been decompensating, defecating and urinating on the floor of her bedroom, and AH, talking to haley, mirrors, and her hands. Pt brought in by [facility] after pt.s sister called the police. Pt has reportedly been going to the bathroom in buckets or on the floor of her bedroom, has been having outbursts of anger and agitation, AH, and bizarre behavior. Pt's appears disheveled and unkempt, speech is repetitive and unfocused, pressured and disorganized. Pt has to be redirected multiple times during MHE. Pt denies SI/HI, AH/VH, reports normal sleep and appetite. Pt states "I have narrowing airways, so it is really hard for me to breathe. I don't go on the stairs very well, and there are 13 people living in the house so the bathroom is full." Pt repeatedly states "I am here for my thyroid, but I am due back in [place] in a few days, so I am going to leave with my sister." VITAL SIGNS: See below. CURRENT MEDICATIONS: See below. MENTAL STATUS EXAMINATION: Patient is a 50 -year-old , Unemployed, Domiciled , female who was brought in by her mother for bizarre behaviors, delusional thinking and psychotic symptoms of auditory hallucinations. Speech: Is slow and low rate, tone and volume, minimal Language skills are fair Thought processes including: perseveration of goiter, thyroid Thought content: unable to ascertain Abstract reasoning, and computation: fair Description of associations: enlarged thyroid and goiter Description of abnormal or psychotic thoughts: Delusional thoughts about COPD stage 4, enlarged goiter and thyroid Judgment: poor Insight: poor Orientation: Alert and oriented to person, place. time but not to situation Recent and remote memory: intact Attention span and concentration: fair Language: average Fund of knowledge: average Mood: apathetic Affect: flat DIAGNOSES: Unspecified psychotic disorder rule out Schizophrenia Disorder Hyperthyroid Graves' disease ASSESSMENT: Patient found in her room with blanket over her head, she agreed to speak with provider. She continues to have delusional thinking that she is having difficulty because she has COPD stage 4 and enlarge goiter and thyroid. She is not observed with shortness or breathe or difficulty speaking. She is minimal in her responses and at times had inaudible responses. She had improved eye contact. Remains disheveled and unkempt, not attending to ADLs. Patient is taking her medications, does not appear to be dangerous, denying suicidal thinking, depression, anxiety and hallucinations. Patient remains preoccupied about her neck. Encouraged to shower and attend groups. Will need further collaboration, symptomology and timeline to make Schizophrenia diagnosis. MANAGEMENT PLAN: Continue all medications,increase Haldol to 15 mg in AM TIME SPENT: 15 minutes. Vital Signs Vital Signs Date Time Temp Pulse Resp B/P (MAP) Pulse Ox O2 Delivery O2 Flow Rate FiO2 01/25/21 07:25 98.4 91 16 124/87 (99) 96 Room Air Current Medications Current Medications Medications (Trade) Dose Ordered Sig/Pearl Route PRN Reason Start Time Stop Time Status Last Admin Dose Admin Acetaminophen (Tylenol Tab) 650 mg Q6HP PRN PO HEADACHE or DISCOMFORT 01/15/21 19:10 01/19/21 20:22 Al Hydrox/Mg Hydrox/Simethicone (Mylanta) 30 ml Q4HP PRN PO HEARTBURN/INDIGESTION 01/15/21 19:10 Benztropine Mesylate (Cogentin) 0.5 mg BIDP PRN PO EPS 01/16/21 15:15 Haloperidol (Haldol) 5 mg BID PO 01/16/21 21:00 01/19/21 09:03 DC 01/19/21 08:43 Haloperidol (Haldol) 10 mg DAILY PO 01/20/21 09:00 01/23/21 11:34 DC 01/23/21 08:55 Haloperidol (Haldol) 15 mg DAILY PO 01/24/21 09:00 01/25/21 09:45 DC 01/24/21 08:58 Haloperidol (Haldol) 15 mg DAILY PO 01/25/21 09:00 01/25/21 09:55 Haloperidol (Haldol) 15 mg DAILY PO 01/25/21 09:45 01/25/21 09:52 DC Home Med (Med Rec Complete!) ASDIRECTED XX 01/15/21 19:55 01/15/21 19:58 DC Hydroxyzine HCl (Atarax) 50 mg Q6HP PRN PO ANXIETY 01/16/21 15:15 Lorazepam (Ativan) 1 mg STAT STAT PO 01/15/21 13:53 01/15/21 13:54 DC 01/15/21 18:50 Magnesium Hydroxide (Milk Of Magnesia) 30 ml DAILYPRN PRN PO CONSTIPATION 01/15/21 19:10 Nicotine (Nicoderm Cq 21mg) 1 patch DAILY TD 01/16/21 09:00 Olanzapine (ZyPREXA ZYDIS) 5 mg Q6HP PRN PO ANXIETY/AGITATION 01/15/21 19:10 Risperidone (RisperDAL) 2 mg QHS PO 01/15/21 21:00 01/16/21 15:16 DC 01/15/21 21:18 Sertraline HCl (Zoloft) 25 mg QAM PO 01/17/21 09:00 01/19/21 09:03 DC 01/19/21 08:43 Sertraline HCl (Zoloft) 50 mg QAM PO 01/20/21 09:00 01/25/21 09:55 Trazodone HCl (Desyrel) 50 mg QHSP PRN PO INSOMNIA 01/15/21 19:10 Allergies Coded Allergies: No Known Allergies (Unverified , 01/15/21) NEVIN FAY NP Jan 25, 2021 12:39
[2021-01-25 16:14] VITALS: BP 133/70
[2021-01-26 06:20] VITALS: BP 114/57
[2021-01-26] MEDS: NICOTINE 21MG/24HR 1 EA TRANSDERMAL TD SCH (09:00)
[2021-01-26] MEDS: haloperidoL 5 MG TAB PO SCH (09:24)
[2021-01-26] MEDS: SERTRALINE HCL 50 MG TAB PO SCH (09:24)
--- NOTE | 2021-01-26 13:32 | MHIPNPDOC ---
[facility] Progress Note Progress Note DATE OF SERVICE: 01/26/21 HISTORY: Patient is a 50 -year-old , Unemployed, Domiciled , female who was brought in by her mother for bizarre behaviors, delusional thinking and psychotic symptoms of auditory hallucinations. According to the ED report, patient is currently visiting her mother in family currently resides in [place]. Patient has been in the area for roughly a week. . She did not come out of her room, started using a bucket, and her room for toilet using it to urinate and then began defecating on the floor. She was making bizarre statements, stating that she will if she leaves the house. Reports that she has thyroid issues and irritable freeze her throat in the interview today. She reports that she is having trouble breathing and that her trachea is narrowing. She reported to me that she has stage IV COPD, and that she needed to be brought to the hospital because she is living with 13 other people and 5 dogs in the home making her have difficulty breathing. She states, "I have thyroid disease." Patient was very repetitive in her interview with me, stating "I have thyroid issues and have an advanced stage of COPD and have narrowing of the trachea. I have to leave because I then a [place] citizen and a resident of [place] and my is coming to get me tomorrow." Patient is not observed with any shortness of breath or difficulty breathing. She is however very hyperverbal, tangential, has rapid speech and is speaking in full and complete sentences. PER ED REPORT: Police report linda is visiting her mother (Brenna [phone]) and family (sister in law, [phone]) from [place]. Pt. sister in law reports pt. has been in area for almost one week, has been staying in her room almost exclusively. Pt. has been using bucket in her room for a toilet, has started to urinate and defecate on floor also. Pt. states she will if she leaves the house, states she has thyroid issues and that the air will freeze her throat. She has not been bathing. She has been stating that the haley and mirror are talking to her and the house is doing things to her. Sister in law states that pt. does not have a psychiatric diagnosis because she has refused to see a therapist or psychiatrist, stating her and family has thought for some time that she was in need. contact # pat-[phone]. Pt was brought in by [facility] per mother and sister. Pt has been decompensating, defecating and urinating on the floor of her bedroom, and AH, talking to haley, mirrors, and her hands. Pt brought in by [facility] after pt.s sister called the police. Pt has reportedly been going to the bathroom in buckets or on the floor of her bedroom, has been having outbursts of anger and agitation, AH, and bizarre behavior. Pt's appears disheveled and unkempt, speech is repetitive and unfocused, pressured and disorganized. Pt has to be redirected multiple times during MHE. Pt denies SI/HI, AH/VH, reports normal sleep and appetite. Pt states "I have narrowing airways, so it is really hard for me to breathe. I don't go on the stairs very well, and there are 13 people living in the house so the bathroom is full." Pt repeatedly states "I am here for my thyroid, but I am due back in [place] in a few days, so I am going to leave with my sister." VITAL SIGNS: See below. CURRENT MEDICATIONS: See below. MENTAL STATUS EXAMINATION: Patient is a 50 -year-old , Unemployed, Domiciled , female who was brought in by her mother for bizarre behaviors, delusional thinking and psychotic symptoms of auditory hallucinations. Has not attended to ADLs. She is unkempt and disheveled. Speech: Is slow and low rate, tone and volume, minimal Language skills are fair Thought processes including: perseveration of goiter, thyroid Thought content: reports depression and anxiety regarding her somatic complaints Abstract reasoning, and computation: fair Description of associations: enlarged thyroid and goiter Description of abnormal or psychotic thoughts: Delusional and perseveration thoughts about COPD stage 4, enlarged goiter and thyroid Judgment: poor Insight: poor Orientation: Alert and oriented to person, place. time but not to situation Recent and remote memory: intact Attention span and concentration: fair Language: average Fund of knowledge: average Mood: apathetic Affect: flat DIAGNOSES: Unspecified psychotic disorder rule out Schizophrenia Disorder Hyperthyroid Graves' disease ASSESSMENT: Patient found in bed with blanket over her head. She was agreeable to interview in office,. She continues to have delusional and perseveration thinking that she is having difficulty because she has COPD stage 4 and enlarge goiter and thyroid. She is not observed with shortness or breathe or difficulty speaking. Patient remains preoccupied about her neck. Encouraged to shower and attend groups. MANAGEMENT PLAN: Continue all medications, decrease Haldol have not seen much improvement. Will start Risperdal TIME SPENT: 25 minutes. Vital Signs Vital Signs Date Time Temp Pulse Resp B/P (MAP) Pulse Ox O2 Delivery O2 Flow Rate FiO2 01/26/21 06:20 97.6 66 16 114/57 (76) 96 Room Air Current Medications Current Medications Medications (Trade) Dose Ordered Sig/Pearl Route PRN Reason Start Time Stop Time Status Last Admin Dose Admin Acetaminophen (Tylenol Tab) 650 mg Q6HP PRN PO HEADACHE or DISCOMFORT 01/15/21 19:10 01/19/21 20:22 Al Hydrox/Mg Hydrox/Simethicone (Mylanta) 30 ml Q4HP PRN PO HEARTBURN/INDIGESTION 01/15/21 19:10 Benztropine Mesylate (Cogentin) 0.5 mg BIDP PRN PO EPS 01/16/21 15:15 Haloperidol (Haldol) 5 mg BID PO 01/16/21 21:00 01/19/21 09:03 DC 01/19/21 08:43 Haloperidol (Haldol) 10 mg DAILY PO 01/20/21 09:00 01/23/21 11:34 DC 01/23/21 08:55 Haloperidol (Haldol) 15 mg DAILY PO 01/24/21 09:00 01/25/21 09:45 DC 01/24/21 08:58 Haloperidol (Haldol) 15 mg DAILY PO 01/25/21 09:00 01/26/21 09:24 Haloperidol (Haldol) 15 mg DAILY PO 01/25/21 09:45 01/25/21 09:52 DC Home Med (Med Rec Complete!) ASDIRECTED XX 01/15/21 19:55 01/15/21 19:58 DC Hydroxyzine HCl (Atarax) 50 mg Q6HP PRN PO ANXIETY 01/16/21 15:15 Lorazepam (Ativan) 1 mg STAT STAT PO 01/15/21 13:53 01/15/21 13:54 DC 01/15/21 18:50 Magnesium Hydroxide (Milk Of Magnesia) 30 ml DAILYPRN PRN PO CONSTIPATION 01/15/21 19:10 Nicotine (Nicoderm Cq 21mg) 1 patch DAILY TD 01/16/21 09:00 Olanzapine (ZyPREXA ZYDIS) 5 mg Q6HP PRN PO ANXIETY/AGITATION 01/15/21 19:10 Risperidone (RisperDAL) 2 mg QHS PO 01/15/21 21:00 01/16/21 15:16 DC 01/15/21 21:18 Sertraline HCl (Zoloft) 25 mg QAM PO 01/17/21 09:00 01/19/21 09:03 DC 01/19/21 08:43 Sertraline HCl (Zoloft) 50 mg QAM PO 01/20/21 09:00 01/26/21 09:24 Trazodone HCl (Desyrel) 50 mg QHSP PRN PO INSOMNIA 01/15/21 19:10 Allergies Coded Allergies: No Known Allergies (Unverified , 01/15/21) NEVIN FAY [employer] PROGRAM COORDINATOR Jan 26, 2021 13:31
[2021-01-26] MEDS: risperiDONE 2 MG TAB PO SCH (20:37)
[2021-01-26 21:33] VITALS: BP 131/76
[2021-01-27 06:43] VITALS: BP 110/68
[2021-01-27] MEDS: NICOTINE 21MG/24HR 1 EA TRANSDERMAL TD SCH (09:00)
[2021-01-27] MEDS: SERTRALINE HCL 50 MG TAB PO SCH (09:30)
[2021-01-27] MEDS: risperiDONE 2 MG TAB PO SCH ×2 (09:30→20:08)
[2021-01-27 17:38] VITALS: BP 104/65
[2021-01-28 06:00] VITALS: BP_SYST 147; BP_DIAS 48; BP_DIAS 78
[2021-01-28] MEDS: risperiDONE 2 MG TAB PO SCH ×2 (08:48→21:00)
[2021-01-28] MEDS: NICOTINE 21MG/24HR 1 EA TRANSDERMAL TD SCH (08:48)
[2021-01-28] MEDS: SERTRALINE HCL 50 MG TAB PO SCH (08:48)
[2021-01-28 18:07] VITALS: BP 116/71
[2021-01-29 06:27] VITALS: BP 140/77
[2021-01-29] MEDS: NICOTINE 21MG/24HR 1 EA TRANSDERMAL TD SCH (08:03)
[2021-01-29] MEDS: SERTRALINE HCL 50 MG TAB PO SCH (08:04)
[2021-01-29] MEDS: risperiDONE 2 MG TAB PO SCH (08:04)
[2021-01-29] MEDS ORDERED: risperiDONE 2 MG TAB PO ONE (09:20)
[2021-01-29] MEDS ORDERED: METH10TA PO (09:58)
--- NOTE | 2021-01-29 15:11 | MHIPNPDOC ---
[facility] Progress Note Progress Note DATE OF SERVICE: 01/29/21 HISTORY:Patient is a 50 -year-old , Unemployed, Domiciled , female who was brought in by her mother for bizarre behaviors, delusional thinking and psychotic symptoms of auditory hallucinations. According to the ED report, patient is currently visiting her mother in family currently resides in [place]. Patient has been in the area for roughly a week. . She did not come out of her room, started using a bucket, and her room for toilet using it to urinate and then began defecating on the floor. She was making bizarre statements, stating that she will if she leaves the house. Reports that she has thyroid issues and irritable freeze her throat in the interview today. She reports that she is having trouble breathing and that her trachea is narrowing. She reported to me that she has stage IV COPD, and that she needed to be brought to the hospital because she is living with 13 other people and 5 dogs in the home making her have difficulty breathing. She states, "I have thyroid disease." Patient was very repetitive in her interview with me, stating "I have thyroid issues and have an advanced stage of COPD and have narrowing of the trachea. I have to leave because I then a [place] citizen and a resident of [place] and my is coming to get me tomorrow." Patient is not observed with any shortness of breath or difficulty breathing. She is however very hyperverbal, tangential, has rapid speech and is speaking in full and complete sentences. PER ED REPORT: Police report linda is visiting her mother (Brenna [phone]) and family (sister in law, Rosil-[phone]) from [place]. Pt. sister in law reports pt. has been in area for almost one week, has been staying in her room almost exclusively. Pt. has been using bucket in her room for a toilet, has started to urinate and defecate on floor also. Pt. states she will if she leaves the house, states she has thyroid issues and that the air will freeze her throat. She has not been bathing. She has been stating that the haley and mirror are talking to her and the house is doing things to her. Sister in law states that pt. does not have a psychiatric diagnosis because she has refused to see a therapist or psychiatrist, stating her and family has thought for some time that she was in need. contact # pat-[phone]. Pt was brought in by [facility] per mother and sister. Pt has been decompensating, defecating and urinating on the floor of her bedroom, and AH, talking to haley, mirrors, and her hands. Pt brought in by [facility] after pt.s sister called the police. Pt has reportedly been going to the bathroom in buckets or on the floor of her bedroom, has been having outbursts of anger and agitation, AH, and bizarre behavior. Pt's appears disheveled and unkempt, speech is repetitive and unfocused, pressured and disorganized. Pt has to be redirected multiple times during MHE. Pt denies SI/HI, AH/VH, reports normal sleep and appetite. Pt states "I have narrowing airways, so it is really hard for me to breathe. I don't go on the stairs very well, and there are 13 people living in the house so the bathroom is full." Pt repeatedly states "I am here for my thyroid, but I am due back in [place] in a few days, so I am going to leave with my sister." VITAL SIGNS: See below. CURRENT MEDICATIONS: See below. MENTAL STATUS EXAMINATION: Patient is a 50 -year-old , Unemployed, Domiciled , female who was brought in by her mother for bizarre behaviors, delusional thinking and psychotic symptoms of auditory hallucinations. Has not attended to ADLs. She is unkempt and disheveled. Speech: Is slow and low rate, tone and volume, minimal Language skills are fair Thought processes including: perseveration of goiter, thyroid Thought content: reports depression and anxiety regarding her somatic complaints Abstract reasoning, and computation: fair Description of associations: enlarged thyroid and goiter Description of abnormal or psychotic thoughts: Delusional and perseveration thoughts about COPD stage 4, enlarged goiter and thyroid Judgment: poor Insight: poor Orientation: Alert and oriented to person, place. time but not to situation Recent and remote memory: intact Attention span and concentration: fair Language: average Fund of knowledge: average Mood: apathetic Affect: flat DIAGNOSES: Unspecified psychotic disorder rule out Schizophrenia Disorder Hyperthyroid Graves' disease ASSESSMENT: Patient appears to be improving. She is out in the milieu, less ruminations about her thyroid, less delusional and appears to be more cooperative. Reinforced with her continued compliance with medications and she can be discharged on Friday. She is not paranoid, denies depression or anxiety and appears that Risperdal is improving her psychotic symptoms. MANAGEMENT PLAN: Continue all medications, probable discharge on Friday TIME SPENT: 25 minutes. Vital Signs Vital Signs Date Time Temp Pulse Resp B/P (MAP) Pulse Ox O2 Delivery O2 Flow Rate FiO2 01/29/21 09:25 Room Air 01/29/21 06:27 99.0 76 14 140/77 (98) 97 Laboratory Data 24H Labs Laboratory Tests 2 01/29/21 10:59: Thyroid Stimulating Hormone (TSH) 0.411 Current Medications Current Medications Medications (Trade) Dose Ordered Sig/Pearl Route PRN Reason Start Time Stop Time Status Last Admin Dose Admin Acetaminophen (Tylenol Tab) 650 mg Q6HP PRN PO HEADACHE or DISCOMFORT 01/15/21 19:10 01/19/21 20:22 Al Hydrox/Mg Hydrox/Simethicone (Mylanta) 30 ml Q4HP PRN PO HEARTBURN/INDIGESTION 01/15/21 19:10 Benztropine Mesylate (Cogentin) 0.5 mg BIDP PRN PO EPS 01/16/21 15:15 Haloperidol (Haldol) 5 mg BID PO 01/16/21 21:00 01/19/21 09:03 DC 01/19/21 08:43 Haloperidol (Haldol) 10 mg DAILY PO 01/20/21 09:00 01/23/21 11:34 DC 01/23/21 08:55 Haloperidol (Haldol) 15 mg DAILY PO 01/24/21 09:00 01/25/21 09:45 DC 01/24/21 08:58 Haloperidol (Haldol) 15 mg DAILY PO 01/25/21 09:00 01/26/21 13:32 DC 01/26/21 09:24 Haloperidol (Haldol) 15 mg DAILY PO 01/25/21 09:45 01/25/21 09:52 DC Home Med (Med Rec Complete!) ASDIRECTED XX 01/15/21 19:55 01/15/21 19:58 DC Hydroxyzine HCl (Atarax) 50 mg Q6HP PRN PO ANXIETY 01/16/21 15:15 Lorazepam (Ativan) 1 mg STAT STAT PO 01/15/21 13:53 01/15/21 13:54 DC 01/15/21 18:50 Magnesium Hydroxide (Milk Of Magnesia) 30 ml DAILYPRN PRN PO CONSTIPATION 01/15/21 19:10 Methimazole (Tapazole) 10 mg DAILY PO 01/29/21 09:00 01/29/21 12:08 Nicotine (Nicoderm Cq 21mg) 1 patch DAILY TD 01/16/21 09:00 Olanzapine (ZyPREXA ZYDIS) 5 mg Q6HP PRN PO ANXIETY/AGITATION 01/15/21 19:10 Risperidone (RisperDAL) 2 mg BID PO 01/26/21 21:00 01/29/21 09:04 DC 01/29/21 08:04 Risperidone (RisperDAL) 2 mg QHS PO 01/15/21 21:00 01/16/21 15:16 DC 01/15/21 21:18 Risperidone (RisperDAL) 4 mg QAM PO 01/30/21 09:00 Sertraline HCl (Zoloft) 25 mg QAM PO 01/17/21 09:00 01/19/21 09:03 DC 01/19/21 08:43 Sertraline HCl (Zoloft) 50 mg QAM PO 01/20/21 09:00 01/29/21 08:04 Trazodone HCl (Desyrel) 50 mg QHSP PRN PO INSOMNIA 01/15/21 19:10 Allergies Coded Allergies: No Known Allergies (Unverified , 01/15/21) NEVIN FAY [employer]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
[2021-01-29 16:12] VITALS: BP 129/60
[2021-01-30 07:16] VITALS: BP 158/88
[2021-01-30] MEDS: NICOTINE 21MG/24HR 1 EA TRANSDERMAL TD SCH (09:00)
[2021-01-30] MEDS: risperiDONE 2 MG TAB PO SCH (09:11)
[2021-01-30] MEDS: SERTRALINE HCL 50 MG TAB PO SCH (09:12)
[2021-01-30 16:15] VITALS: BP 111/64
--- NOTE | 2021-01-30 16:48 | MHIPNPDOC ---
[facility] Progress Note Progress Note DATE OF SERVICE: 01/30/21 HISTORY: Patient is a 50 -year-old , Unemployed, Domiciled , female who was brought in by her mother for bizarre behaviors, delusional thinking and psychotic symptoms of auditory hallucinations. According to the ED report, patient is currently visiting her mother in family currently resides in [place]. Patient has been in the area for roughly a week. . She did not come out of her room, started using a bucket, and her room for toilet using it to urinate and then began defecating on the floor. She was making bizarre statements, stating that she will if she leaves the house. Reports that she has thyroid issues and irritable freeze her throat in the interview today. She reports that she is having trouble breathing and that her trachea is narrowing. She reported to me that she has stage IV COPD, and that she needed to be brought to the hospital because she is living with 13 other people and 5 dogs in the home making her have difficulty breathing. She states, "I have thyroid disease." Patient was very repetitive in her interview with me, stating "I have thyroid issues and have an advanced stage of COPD and have narrowing of the trachea. I have to leave because I then a [place] citizen and a resident of [place] and my is coming to get me tomorrow." Patient is not observed with any shortness of breath or difficulty breathing. She is however very hyperverbal, tangential, has rapid speech and is speaking in full and complete sentences. PER ED REPORT: Police report linda is visiting her mother (Brenna [phone]) and family (sister in law, [phone]) from [place]. Pt. sister in law reports pt. has been in area for almost one week, has been staying in her room almost exclusively. Pt. has been using bucket in her room for a toilet, has started to urinate and defecate on floor also. Pt. states she will if she leaves the house, states she has thyroid issues and that the air will freeze her throat. She has not been bathing. She has been stating that the haley and mirror are talking to her and the house is doing things to her. Sister in law states that pt. does not have a psychiatric diagnosis because she has refused to see a therapist or psychiatrist, stating her and family has thought for some time that she was in need. contact # pat-[phone]. Pt was brought in by [facility] per mother and sister. Pt has been decompensating, defecating and urinating on the floor of her bedroom, and AH, talking to haley, mirrors, and her hands. Pt brought in by [facility] after pt.s sister called the police. Pt has reportedly been going to the bathroom in buckets or on the floor of her bedroom, has been having outbursts of anger and agitation, AH, and bizarre behavior. Pt's appears disheveled and unkempt, speech is repetitive and unfocused, pressured and disorganized. Pt has to be redirected multiple times during MHE. Pt denies SI/HI, AH/VH, reports normal sleep and appetite. Pt states "I have narrowing airways, so it is really hard for me to breathe. I don't go on the stairs very well, and there are 13 people living in the house so the bathroom is full." Pt repeatedly states "I am here for my thyroid, but I am due back in [place] in a few days, so I am going to leave with my sister." VITAL SIGNS: See below. CURRENT MEDICATIONS: See below. MENTAL STATUS EXAMINATION: Patient is a 50 -year-old , Unemployed, Domiciled , female who was brought in by her mother for bizarre behaviors, delusional thinking and psychotic symptoms of auditory hallucinations. Has not attended to ADLs. She is unkempt and disheveled. Speech: Is slow and low rate, tone and volume, minimal Language skills are fair Thought processes including: less perseveration of goiter, thyroid Thought content: reports less depression and anxiety regarding her somatic complaints Abstract reasoning, and computation: fair Description of associations: enlarged thyroid and goiter Description of abnormal or psychotic thoughts: appears to be less delusional and perseveration thoughts about COPD stage 4, enlarged goiter and thyroid Judgment: improving Insight: improving Orientation: Alert and oriented to person, place. time but not to situation Recent and remote memory: intact Attention span and concentration: fair Language: average Fund of knowledge: average Mood: apathetic Affect: flat DIAGNOSES: Unspecified psychotic disorder rule out Schizophrenia Disorder Hyperthyroid Graves' disease ASSESSMENT: Patient appears to be improving. She is out in the milieu, less ruminations about her thyroid and appears to be more cooperative. She continues to have poor attendance to her ADLs. Reinforced with her continued compliance with medications, group therapy, participation in the milieu and her ADLs in order to be discharged on Friday. She is not reporting any paranoia, denies depression or anxiety and appears that Risperdal is improving her psychotic symptoms. Patient is agreeable to long acting injectable os Sustenna Invega. MANAGEMENT PLAN: Continue all medications, probable discharge on Friday TIME SPENT: 25 minutes. Vital Signs Vital Signs Date Time Temp Pulse Resp B/P (MAP) Pulse Ox O2 Delivery O2 Flow Rate FiO2 01/30/21 16:15 97.8 100 18 111/64 (80) 97 Room Air Current Medications Current Medications Medications (Trade) Dose Ordered Sig/Pearl Route PRN Reason Start Time Stop Time Status Last Admin Dose Admin Acetaminophen (Tylenol Tab) 650 mg Q6HP PRN PO HEADACHE or DISCOMFORT 01/15/21 19:10 01/19/21 20:22 Al Hydrox/Mg Hydrox/Simethicone (Mylanta) 30 ml Q4HP PRN PO HEARTBURN/INDIGESTION 01/15/21 19:10 Benztropine Mesylate (Cogentin) 0.5 mg BIDP PRN PO EPS 01/16/21 15:15 Haloperidol (Haldol) 5 mg BID PO 01/16/21 21:00 01/19/21 09:03 DC 01/19/21 08:43 Haloperidol (Haldol) 10 mg DAILY PO 01/20/21 09:00 01/23/21 11:34 DC 01/23/21 08:55 Haloperidol (Haldol) 15 mg DAILY PO 01/24/21 09:00 01/25/21 09:45 DC 01/24/21 08:58 Haloperidol (Haldol) 15 mg DAILY PO 01/25/21 09:00 01/26/21 13:32 DC 01/26/21 09:24 Haloperidol (Haldol) 15 mg DAILY PO 01/25/21 09:45 01/25/21 09:52 DC Home Med (Med Rec Complete!) ASDIRECTED XX 01/15/21 19:55 01/15/21 19:58 DC Hydroxyzine HCl (Atarax) 50 mg Q6HP PRN PO ANXIETY 01/16/21 15:15 Lorazepam (Ativan) 1 mg STAT STAT PO 01/15/21 13:53 01/15/21 13:54 DC 01/15/21 18:50 Magnesium Hydroxide (Milk Of Magnesia) 30 ml DAILYPRN PRN PO CONSTIPATION 01/15/21 19:10 Methimazole (Tapazole) 10 mg DAILY PO 01/29/21 09:00 01/30/21 09:12 Nicotine (Nicoderm Cq 21mg) 1 patch DAILY TD 01/16/21 09:00 Olanzapine (ZyPREXA ZYDIS) 5 mg Q6HP PRN PO ANXIETY/AGITATION 01/15/21 19:10 Risperidone (RisperDAL) 2 mg BID PO 01/26/21 21:00 01/29/21 09:04 DC 01/29/21 08:04 Risperidone (RisperDAL) 2 mg QHS PO 01/15/21 21:00 01/16/21 15:16 DC 01/15/21 21:18 Risperidone (RisperDAL) 4 mg QAM PO 01/30/21 09:00 01/30/21 09:11 Sertraline HCl (Zoloft) 25 mg QAM PO 01/17/21 09:00 01/19/21 09:03 DC 01/19/21 08:43 Sertraline HCl (Zoloft) 50 mg QAM PO 01/20/21 09:00 01/30/21 09:12 Trazodone HCl (Desyrel) 50 mg QHSP PRN PO INSOMNIA 01/15/21 19:10 Allergies Coded Allergies: No Known Allergies (Unverified , 01/15/21) NEVIN FAY NP Jan 30, 2021 16:48
[2021-01-30] MEDS ORDERED: PALIPERIDONE PALMITATE 234MG/1.5ML INJ (INVEGA)(FREE PSY INPT ONLY) IM ONE (18:00)
[2021-01-31 06:50] VITALS: BP 156/90
[2021-01-31] MEDS: NICOTINE 21MG/24HR 1 EA TRANSDERMAL TD SCH (08:54)
[2021-01-31] MEDS: risperiDONE 2 MG TAB PO SCH (08:54)
[2021-01-31] MEDS: SERTRALINE HCL 50 MG TAB PO SCH (08:54)
--- NOTE | 2021-01-31 13:31 | MHIPNPDOC ---
[facility] Progress Note Progress Note DATE OF SERVICE: 01/31/21 HISTORY: Patient is a 50 -year-old , Unemployed, Domiciled , female who was brought in by her mother for bizarre behaviors, delusional thinking and psychotic symptoms of auditory hallucinations. According to the ED report, patient is currently visiting her mother in family currently resides in [place]. Patient has been in the area for roughly a week. . She did not come out of her room, started using a bucket, and her room for toilet using it to urinate and then began defecating on the floor. She was making bizarre statements, stating that she will if she leaves the house. Reports that she has thyroid issues and irritable freeze her throat in the interview today. She reports that she is having trouble breathing and that her trachea is narrowing. She reported to me that she has stage IV COPD, and that she needed to be brought to the hospital because she is living with 13 other people and 5 dogs in the home making her have difficulty breathing. She states, "I have thyroid disease." Patient was very repetitive in her interview with me, stating "I have thyroid issues and have an advanced stage of COPD and have narrowing of the trachea. I have to leave because I then a [place] citizen and a resident of [place] and my is coming to get me tomorrow." Patient is not observed with any shortness of breath or difficulty breathing. She is however very hyperverbal, tangential, has rapid speech and is speaking in full and complete sentences. PER ED REPORT: Police report linda is visiting her mother (Brenna [phone]) and family (sister in law, [phone]) from [place]. Pt. sister in law reports pt. has been in area for almost one week, has been staying in her room almost exclusively. Pt. has been using bucket in her room for a toilet, has started to urinate and defecate on floor also. Pt. states she will if she leaves the house, states she has thyroid issues and that the air will freeze her throat. She has not been bathing. She has been stating that the haley and mirror are talking to her and the house is doing things to her. Sister in law states that pt. does not have a psychiatric diagnosis because she has refused to see a therapist or psychiatrist, stating her and family has thought for some time that she was in need. contact # pat-[phone]. Pt was brought in by [facility] per mother and sister. Pt has been decompensating, defecating and urinating on the floor of her bedroom, and AH, talking to haley, mirrors, and her hands. Pt brought in by [facility] after pt.s sister called the police. Pt has reportedly been going to the bathroom in buckets or on the floor of her bedroom, has been having outbursts of anger and agitation, AH, and bizarre behavior. Pt's appears disheveled and unkempt, speech is repetitive and unfocused, pressured and disorganized. Pt has to be redirected multiple times during MHE. Pt denies SI/HI, AH/VH, reports normal sleep and appetite. Pt states "I have narrowing airways, so it is really hard for me to breathe. I don't go on the stairs very well, and there are 13 people living in the house so the bathroom is full." Pt repeatedly states "I am here for my thyroid, but I am due back in [place] in a few days, so I am going to leave with my sister." VITAL SIGNS: See below. CURRENT MEDICATIONS: See below. MENTAL STATUS EXAMINATION: Patient is a 50 -year-old , Unemployed, Domiciled , female who was brought in by her mother for bizarre behaviors, delusional thinking and psychotic symptoms of auditory hallucinations. Has not attended to ADLs. She is unkempt and disheveled. Speech: Is slow and low rate, tone and volume, minimal Language skills are fair Thought processes including: no perseveration of goiter, thyroid Thought content: reports no depression and anxiety Abstract reasoning, and c omputation: fair Description of associations: enlarged thyroid and goiter Description of abnormal or psychotic thoughts: appears to be less delusional and perseveration thoughts about COPD stage 4, enlarged goiter and thyroid Judgment: improving Insight: improving Orientation: Alert and oriented to person, place. time but not to situation Recent and remote memory: intact Attention span and concentration: fair Language: average Fund of knowledge: average Mood: Euthymic Affect: flat DIAGNOSES: Unspecified psychotic disorder rule out Schizophrenia Disorder Hyperthyroid Graves' disease ASSESSMENT: Patient is improving. No ruminations about her goiter or thyroid, she has been attending groups and has been attending to her ADLs. She is reporting no side effects from Invega Sustenna injection. She reports that she has spoken to her who wants her to return to her mother's home and then he will pick her up. While she had minimal to say in the interview, she did not ruminate on her neck at all. She was however somewhat guarded but her mood and affect had improved from yesterday. MANAGEMENT PLAN: Continue all medications, discharge on Friday TIME SPENT: 25 minutes. Vital Signs Vital Signs Date Time Temp Pulse Resp B/P (MAP) Pulse Ox O2 Delivery O2 Flow Rate FiO2 01/31/21 06:50 98.4 72 20 156/90 (112) 98 Room Air Current Medications Current Medications Medications (Trade) Dose Ordered Sig/Pearl Route PRN Reason Start Time Stop Time Status Last Admin Dose Admin Acetaminophen (Tylenol Tab) 650 mg Q6HP PRN PO HEADACHE or DISCOMFORT 01/15/21 19:10 01/19/21 20:22 Al Hydrox/Mg Hydrox/Simethicone (Mylanta) 30 ml Q4HP PRN PO HEARTBURN/INDIGESTION 01/15/21 19:10 Benztropine Mesylate (Cogentin) 0.5 mg BIDP PRN PO EPS 01/16/21 15:15 Haloperidol (Haldol) 5 mg BID PO 01/16/21 21:00 01/19/21 09:03 DC 01/19/21 08:43 Haloperidol (Haldol) 10 mg DAILY PO 01/20/21 09:00 01/23/21 11:34 DC 01/23/21 08:55 Haloperidol (Haldol) 15 mg DAILY PO 01/24/21 09:00 01/25/21 09:45 DC 01/24/21 08:58 Haloperidol (Haldol) 15 mg DAILY PO 01/25/21 09:00 01/26/21 13:32 DC 01/26/21 09:24 Haloperidol (Haldol) 15 mg DAILY PO 01/25/21 09:45 01/25/21 09:52 DC Home Med (Med Rec Complete!) ASDIRECTED XX 01/15/21 19:55 01/15/21 19:58 DC Hydroxyzine HCl (Atarax) 50 mg Q6HP PRN PO ANXIETY 01/16/21 15:15 Lorazepam (Ativan) 1 mg STAT STAT PO 01/15/21 13:53 01/15/21 13:54 DC 01/15/21 18:50 Magnesium Hydroxide (Milk Of Magnesia) 30 ml DAILYPRN PRN PO CONSTIPATION 01/15/21 19:10 Methimazole (Tapazole) 10 mg DAILY PO 01/29/21 09:00 01/31/21 08:54 Nicotine (Nicoderm Cq 21mg) 1 patch DAILY TD 01/16/21 09:00 Olanzapine (ZyPREXA ZYDIS) 5 mg Q6HP PRN PO ANXIETY/AGITATION 01/15/21 19:10 Risperidone (RisperDAL) 2 mg BID PO 01/26/21 21:00 01/29/21 09:04 DC 01/29/21 08:04 Risperidone (RisperDAL) 2 mg QHS PO 01/15/21 21:00 01/16/21 15:16 DC 01/15/21 21:18 Risperidone (RisperDAL) 4 mg QAM PO 01/30/21 09:00 01/31/21 08:54 Sertraline HCl (Zoloft) 25 mg QAM PO 01/17/21 09:00 01/19/21 09:03 DC 01/19/21 08:43 Sertraline HCl (Zoloft) 50 mg QAM PO 01/20/21 09:00 01/31/21 08:54 Trazodone HCl (Desyrel) 50 mg QHSP PRN PO INSOMNIA 01/15/21 19:10 Allergies Coded Allergies: No Known Allergies (Unverified , 01/15/21) NEVIN FAY NP Jan 31, 2021 13:31
[2021-01-31 16:05] VITALS: BP 115/71
[2021-02-01 07:17] VITALS: BP 146/98
[2021-02-01] MEDS: NICOTINE 21MG/24HR 1 EA TRANSDERMAL TD SCH (09:00)
[2021-02-01] MEDS: SERTRALINE HCL 50 MG TAB PO SCH (09:44)
[2021-02-01] MEDS: risperiDONE 2 MG TAB PO SCH (09:44)
[2021-02-01] MEDS ORDERED: SERT50TA29 PO (12:47)
[2021-02-01] MEDS ORDERED: RISP-9 PO (12:47)
[2021-02-01] MEDS ORDERED: HYDR50TA70 PO (12:47)
[2021-02-01] MEDS ORDERED: BENZ0.5T23 PO ×2 (12:47→13:47)
[2021-02-01] MEDS ORDERED: NICO21PAT TD (12:47)
[2021-02-01] MEDS ORDERED: METH25TAB PO (12:47)
[2021-02-01] MEDS ORDERED: INVE234I IM ×2 (12:47→13:47)
--- NOTE | 2021-02-01 12:53 | MHIPNPDOC ---
[facility] Progress Note Progress Note DATE OF SERVICE: 02/01/21 HISTORY: Patient is a 50 -year-old , Unemployed, Domiciled , female who was brought in by her mother for bizarre behaviors, delusional thinking and psychotic symptoms of auditory hallucinations. According to the ED report, patient is currently visiting her mother in family currently resides in [place]. Patient has been in the area for roughly a week. . She did not come out of her room, started using a bucket, and her room for toilet using it to urinate and then began defecating on the floor. She was making bizarre statements, stating that she will if she leaves the house. Reports that she has thyroid issues and irritable freeze her throat in the interview today. She reports that she is having trouble breathing and that her trachea is narrowing. She reported to me that she has stage IV COPD, and that she needed to be brought to the hospital because she is living with 13 other people and 5 dogs in the home making her have difficulty breathing. She states, "I have thyroid disease." Patient was very repetitive in her interview with me, stating "I have thyroid issues and have an advanced stage of COPD and have narrowing of the trachea. I have to leave because I then a [place] citizen and a resident of [place] and my is coming to get me tomorrow." Patient is not observed with any shortness of breath or difficulty breathing. She is however very hyperverbal, tangential, has rapid speech and is speaking in full and complete sentences. PER ED REPORT: Police report linda is visiting her mother (Brenna [phone]) and family (sister in law, Uyuav-[phone]) from [place]. Pt. sister in law reports pt. has been in area for almost one week, has been staying in her room almost exclusively. Pt. has been using bucket in her room for a toilet, has started to urinate and defecate on floor also. Pt. states she will if she leaves the house, states she has thyroid issues and that the air will freeze her throat. She has not been bathing. She has been stating that the haley and mirror are talking to her and the house is doing things to her. Sister in law states that pt. does not have a psychiatric diagnosis because she has refused to see a therapist or psychiatrist, stating her and family has thought for some time that she was in need. contact # pat-[phone]. Pt was brought in by [facility] per mother and sister. Pt has been decompensating, defecating and urinating on the floor of her bedroom, and AH, talking to haley, mirrors, and her hands. Pt brought in by [facility] after pt.s sister called the police. Pt has reportedly been going to the bathroom in buckets or on the floor of her bedroom, has been having outbursts of anger and agitation, AH, and bizarre behavior. Pt's appears disheveled and unkempt, speech is repetitive and unfocused, pressured and disorganized. Pt has to be redirected multiple times during MHE. Pt denies SI/HI, AH/VH, reports normal sleep and appetite. Pt states "I have narrowing airways, so it is really hard for me to breathe. I don't go on the stairs very well, and there are 13 people living in the house so the bathroom is full." Pt repeatedly states "I am here for my thyroid, but I am due back in [place] in a few days, so I am going to leave with my sister." VITAL SIGNS: See below. CURRENT MEDICATIONS: See below. MENTAL STATUS EXAMINATION: Patient is a 50 -year-old , Unemployed, Domiciled , female who was brought in by her mother for bizarre behaviors, delusional thinking and psychotic symptoms of auditory hallucinations. Has not attended to ADLs. She is unkempt and disheveled. Speech: Is normal rate tone and volume, although at times minimal Language skills are fair Thought processes including: linear, mildly guarded Thought content: reports no depression and anxiety Abstract reasoning, and co mputation: fair Description of associations: enlarged thyroid and goiter Description of abnormal or psychotic thoughts: denies when asked about her thyroid issues Judgment: fair Insight: fair Orientation: Alert and oriented to person, place. time but not to situation Recent and remote memory: intact Attention span and concentration: fair Language: average Fund of knowledge: average Mood: Euthymic Affect: flat DIAGNOSES: Unspecified Schizophrenia and Other Psychotic Disorders Hyperthyroid Graves' disease ASSESSMENT: Patient remains moderately euthymic with constricted affect but did not voice any psychotic or somatic symptoms today. She stated that she will be returning to her mother's home and then her will pick her to return to [place]. A 30-day supply of her medications were electronically sent to pharmacy, as well as, Rx for Uday Gonzalez. MANAGEMENT PLAN: Continue all medications, discharge on tomoorw TIME SPENT: 25 minutes. Vital Signs Vital Signs Date Time Temp Pulse Resp B/P (MAP) Pulse Ox O2 Delivery O2 Flow Rate FiO2 02/01/21 07:17 97.7 58 16 146/98 (114) 96 Room Air Current Medications Current Medications Medications (Trade) Dose Ordered Sig/Pearl Route PRN Reason Start Time Stop Time Status Last Admin Dose Admin Acetaminophen (Tylenol Tab) 650 mg Q6HP PRN PO HEADACHE or DISCOMFORT 01/15/21 19:10 01/19/21 20:22 Al Hydrox/Mg Hydrox/Simethicone (Mylanta) 30 ml Q4HP PRN PO HEARTBURN/INDIGESTION 01/15/21 19:10 Benztropine Mesylate (Cogentin) 0.5 mg BIDP PRN PO EPS 01/16/21 15:15 Haloperidol (Haldol) 5 mg BID PO 01/16/21 21:00 01/19/21 09:03 DC 01/19/21 08:43 Haloperidol (Haldol) 10 mg DAILY PO 01/20/21 09:00 01/23/21 11:34 DC 01/23/21 08:55 Haloperidol (Haldol) 15 mg DAILY PO 01/24/21 09:00 01/25/21 09:45 DC 01/24/21 08:58 Haloperidol (Haldol) 15 mg DAILY PO 01/25/21 09:00 01/26/21 13:32 DC 01/26/21 09:24 Haloperidol (Haldol) 15 mg DAILY PO 01/25/21 09:45 01/25/21 09:52 DC Home Med (Med Rec Complete!) ASDIRECTED XX 01/15/21 19:55 01/15/21 19:58 DC Hydroxyzine HCl (Atarax) 50 mg Q6HP PRN PO ANXIETY 01/16/21 15:15 Lorazepam (Ativan) 1 mg STAT STAT PO 01/15/21 13:53 01/15/21 13:54 DC 01/15/21 18:50 Magnesium Hydroxide (Milk Of Magnesia) 30 ml DAILYPRN PRN PO CONSTIPATION 01/15/21 19:10 Methimazole (Tapazole) 10 mg DAILY PO 01/29/21 09:00 02/01/21 09:44 Nicotine (Nicoderm Cq 21mg) 1 patch DAILY TD 01/16/21 09:00 Olanzapine (ZyPREXA ZYDIS) 5 mg Q6HP PRN PO ANXIETY/AGITATION 01/15/21 19:10 Risperidone (RisperDAL) 2 mg BID PO 01/26/21 21:00 01/29/21 09:04 DC 01/29/21 08:04 Risperidone (RisperDAL) 2 mg QHS PO 01/15/21 21:00 01/16/21 15:16 DC 01/15/21 21:18 Risperidone (RisperDAL) 4 mg QAM PO 01/30/21 09:00 02/01/21 09:44 Sertraline HCl (Zoloft) 25 mg QAM PO 01/17/21 09:00 01/19/21 09:03 DC 01/19/21 08:43 Sertraline HCl (Zoloft) 50 mg QAM PO 01/20/21 09:00 02/01/21 09:44 Trazodone HCl (Desyrel) 50 mg QHSP PRN PO INSOMNIA 01/15/21 19:10 Allergies Coded Allergies: No Known Allergies (Unverified , 01/15/21) NEVIN FAY NP Feb 01, 2021 12:53
[2021-02-01] MEDS ORDERED: METH10TA PO (13:47)
[2021-02-01] MEDS ORDERED: NICO21DI9 TD (13:47)
[2021-02-01] MEDS ORDERED: RISP4TAB33 PO (13:47)
[2021-02-01] MEDS ORDERED: HYDR50TA30 PO (13:47)
[2021-02-01] MEDS ORDERED: SERT-141 PO (13:47)
[2021-02-01 16:17] VITALS: BP 126/59
[2021-02-02 06:00] VITALS: BP 119/57
[2021-02-02] MEDS: risperiDONE 2 MG TAB PO SCH (08:44)
[2021-02-02] MEDS: SERTRALINE HCL 50 MG TAB PO SCH (08:44)
[2021-02-02] MEDS ORDERED: PALIPERIDONE PALMITATE 156MG/1ML INJ(INVEGA)(FREE PSY INPT ONLY) IM ONE (09:00)
[2021-02-02] MEDS: NICOTINE 21MG/24HR 1 EA TRANSDERMAL TD SCH (09:00)
--- NOTE | 2021-02-02 13:28 | MHDSPDOC ---
[facility] Discharge Summary Discharge Summary DATE OF ADMISSION: January 15, 2021 at 19:09 DATE OF DISCHARGE: February 02, 2021 at 1315 DISCHARGE DIAGNOSES: Unspecified Schizophrenia and Other Psychotic Disorders Hyperthyroid Graves' disease REASON FOR ADMISSION: Patient is a 50 -year-old , Unemployed, Domiciled , female who was brought in by her mother for bizarre behaviors, delusional thinking and psychotic symptoms of auditory hallucinations. According to the ED report, patient is currently visiting her mother in family currently resides in [place]. Patient has been in the area for roughly a week. . She did not come out of her room, started using a bucket, and her room for toilet using it to urinate and then began defecating on the floor. She was making bizarre statements, stating that she will if she leaves the house. Reports that she has thyroid issues and irritable freeze her throat in the interview today. She reports that she is having trouble breathing and that her trachea is narrowing. She reported to me that she has stage IV COPD, and that she needed to be brought to the hospital because she is living with 13 other people and 5 dogs in the home making her have difficulty breathing. She states, "I have thyroid disease." Patient was very repetitive in her interview with me, stating "I have thyroid issues and have an advanced stage of COPD and have narrowing of the trachea. I have to leave because I then a [place] citizen and a resident of [place] and my is coming to get me tomorrow." Patient is not observed with any shortness of breath or difficulty breathing. She is however very hyperverbal, tangential, has rapid speech and is speaking in full and complete sentences. PER ED REPORT: Police report linda is visiting her mother (Brenna [phone]) and family (sister in law, Tyeyn-[phone]) from [place]. Pt. sister in law reports pt. has been in area for almost one week, has been staying in her room almost exclusively. Pt. has been using bucket in her room for a toilet, has started to urinate and defecate on floor also. Pt. states she will if she leaves the house, states she has thyroid issues and that the air will freeze her throat. She has not been bathing. She has been stating that the haley and mirror are talking to her and the house is doing things to her. Sister in law states that pt. does not have a psychiatric diagnosis because she has refused to see a therapist or psychiatrist, stating her and family has thought for some time that she was in need. contact # pat-[phone]. Pt was brought in by [facility] per mother and sister. Pt has been decompensating, defecating and urinating on the floor of her bedroom, and AH, talking to haley, mirrors, and her hands. Pt brought in by [facility] after pt.s sister called the police. Pt has reportedly been going to the bathroom in buckets or on the floor of her bedroom, has been having outbursts of anger and agitation, AH, and bizarre behavior. Pt's appears disheveled and unkempt, speech is repetitive and unfocused, pressured and disorganized. Pt has to be redirected multiple times during MHE. Pt denies SI/HI, AH/VH, reports normal sleep and appetite. Pt states "I have narrowing airways, so it is really hard for me to breathe. I don't go on the stairs very well, and there are 13 people living in the house so the bathroom is full." Pt repeatedly states "I am here for my thyroid, but I am due back in [place] in a few days, so I am going to leave with my sister." VITAL SIGNS: See below. CONSULTANTS INVOLVED: See Medical H + P by Hospitalist TREATMENT AND PROGRESS ON THE UNIT: Patient was admitted to the [facility] on a 39 legal status he was afforded the following treatment modalities: 1) Individual Therapy 2) Group Therapy 3) Medication Management 4) Milieu Therapy 5) Safe Environment HOSPITAL COURSE: Patient was admitted to [facility] on a 9.39 and started on home medications including Haldol. This was given to patient for one week with no improvement. She did however improve on Risperdal and was given Invega Sustenna. Throughout her hospitalization she had delusional and somatic complaints about her thyroid and goiter. She had reported difficulty breathing and having shortness of breathe which was not observed. She reports after her 19 day stay that she feels improved, although she continues to have mild delusional thoughts about her thyroid, her complaints have lessened. She was initially withdrawn and isolated and guarded and stayed close to her room, refusing to meet with provider. Within the one day of Risperdal administration, she was more compliant with treatment modalities and was seen in the day room, attending to some groups and agreeable to meeting with provider in the interview room. She had been more attention to her ADLS which she had neglected in the first week a nd half her hospitalization. At this time she appears to be stable to return to her mother's home and then her will be coming from [place] to take her back within a day or two. A diagnosis of paranoid Schizophrenia was not given at this time, due to patient's no other history of mental health illness provided by other professionals - she has a report of some history of prodromal symptoms but this was not very well established by her family of time line. DISCHARGE ASSESSMENT: In today's interview, patient is alert and oriented, pts dress is appropriate. Hygiene and grooming is well-kempt. Smiles on approach and is pleasant and engaged in the interview. Denies depression and anxiety. Denies suicidal and homicidal ideation, planning or intent. Denies and is not observed with kait, psychotic symptoms of delusions, bizarre thinking, obsessions, paranoia, ruminations illogical thoughts, flight of ideas or having poor insight and judgement. Patient has normal mentation, declines further hospitalization on a voluntary status and meets criteria for discharge today. Patient encouraged to return to hospital if symptoms worsen or change and encouraged to call unit if he/she/they needs to speak to provider for questions regarding medications or care. MENTAL STATUS EXAMINATION ON DISCHARGE: Patient is a 50 -year-old , Unemployed, Domiciled , female who was brought in by her mother for bizarre behaviors, delusional thinking and psychotic symptoms of auditory hallucinations. ADLS are fair, hair is unkempt Speech: Is normal rate tone and volume, although at times minimal Language skills are fair Thought processes including: linear, mildly guarded Thought content: reports no depression and anxiety Abstract reasoning, and computation: fair Description of associations: enlarged thyroid and goiter Description of abnormal or psychotic thoughts: denies when asked about her thyroid issues Judgment: fair Insight: fair Orientation: Alert and oriented to person, place. time but not to situation Recent and remote memory: intact Attention span and concentration: fair Language: average Fund of knowledge: average Mood: Euthymic Affect: flat MEDICATIONS ON DISCHARGE: See Medication Reconciliation PLAN/FOLLOWUP ARRANGEMENTS: Will be attempting to seek mental health services in [place] where she resides The amount of time spent in the coordination of care for this patient was approximately 25 minutes. ETOH/Disorder Med Rx ETOH/DRUG DISORDER RX: Given to pt at d/c Vital Signs/I&Os Vital Signs Date Time Temp Pulse Resp B/P (MAP) Pulse Ox O2 Delivery O2 Flow Rate FiO2 02/02/21 06:00 97.6 73 16 119/57 (77) 97 Room Air Medications Scheduled Methimazole (Methimazole) 5 Mg Tablet, 10 MG PO DAILY for Thyroid for 30 Days, #60 Methimazole (Methimazole) 10 Mg Tablet, 10 MG PO DAILY for Thyroid for 90 Days, #90 Nicotine (Nicotine Patch) 21 Mg Patch.td24, 1 PATCH TD DAILY for Nicotine Withdrawal for 30 Days, #30 Nicotine (Nicotine Patch) 21 Mg/24 Hr Patch.td24, 21 MG TD DAILY for nicotine withdrawal for 90 Days, #90 Paliperidone Palmitate (Invega Sustenna) 234 Mg/1.5 Ml Syringe, 234 MG IM QMONTH for Pschosis, #1 Next dose due 02/28/21 Paliperidone Palmitate (Invega Sustenna) 234 Mg/1.5 Ml Syringe, 234 MG IM QMONTH for Psychosis for 30 Days, #1 Nest dose due 02/28/21 Risperidone (Risperidone) 2 Mg Tablet, 4 MG PO QAM for Psychosis for 30 Days, #60 Risperidone (Risperdal) 4 Mg Tablet, 4 MG PO DAILY for Psychosis for 14 Days, #28 Sertraline HCl (Sertraline HCl) 50 Mg Tablet, 50 MG PO QAM for depression for 30 Days, #30 Sertraline Hcl (Sertraline HCl) 50 Mg Tablet, 50 MG PO DAILY for Depression for 90 Days, #90 Scheduled PRN Benztropine Mesylate (Benztropine Mesylate) 0.5 Mg Tablet, 0.5 MG PO BIDP PRN for EPS for 30 Days, #60 Benztropine Mesylate (Benztropine Mesylate) 0.5 Mg Tablet, 0.5 MG PO BID PRN for EPS for 90 Days, #180 Hydroxyzine HCl (Hydroxyzine HCl) 50 Mg Tablet, 50 MG PO BIDP PRN for ANXIETY for 30 Days, #60 Hydroxyzine HCl (Hydroxyzine HCl) 50 Mg Tablet, 50 MG PO BIDP PRN for ANXIETY for 90 Days, #180 Allergies Coded Allergies: No Known Allergies (Unverified , 01/15/21) NEVIN FAY NP Feb 02, 2021 13:27
== END 2021-02-02 14:00 | disposition home or self-care (01) | DRG 750 ==
LOC: M ED 12:17 → M ED INP 19:09 → M PSY 22:30
PROVIDERS: ADMIT Psychiatry & Neurology Psychiatry; ATTEND Psychiatry & Neurology Psychiatry
DX: F20.9 Schizophrenia, unspecified (principal); E05.00 Thyrotoxicosis with diffuse goiter without thyrotoxic crisis or storm; Z79.899 Other long term (current) drug therapy; J45.909 Unspecified asthma, uncomplicated; F17.210 Nicotine dependence, cigarettes, uncomplicated

== ENCOUNTER 2022-11-22 12:30 | Inpatient (IN) | payer OTHER ==
[~2022-11-22] VITALS: Ht 160 cm; Wt 68.1 kg
[~2022-11-22 12:30] MED LIST: BENZ0.5T23 PO; HYDR50TA30 PO; HYDR50TA70 PO; INVE234I IM; METH10TA PO; METH25TAB PO; NICO21DI9 TD; NICO21PAT TD; RISP-9 PO; RISP4TAB33 PO; SERT-141 PO; SERT50TA29 PO
[2022-11-22 14:10] LABS: HEMATOCRIT 40.6 % (36.0-47.0); HEMOGLOBIN 13.9 g/dl (12.0-15.5); MEAN CORPUSCULAR HEMOGLOBIN 29.3 pg (27.0-33.0); MEAN CORPUSCULAR HGB CONC 34.2 g/dl (32.0-36.5); MEAN CORPUSCULAR VOLUME 85.7 fl (80.0-96.0); PLATELET COUNT, AUTOMATED 196 10^3/uL (150-450); RED BLOOD COUNT 4.74 10^6/uL (4.00-5.40); WHITE BLOOD COUNT 8.9 10^3/uL (4.0-10.0)
[2022-11-22 14:37] LABS: ETHYL ALCOHOL (ETHANOL) 0.005 % (0.000-0.010)
[2022-11-22 14:38] LABS: ACETAMINOPHEN LEVEL < 2.0 UG/ML (10.0-20.0); SALICYLATE LEVEL < 3.0 MG/DL (<30)
[2022-11-22 14:42] LABS: ALBUMIN 3.7 G/DL (3.2-5.2); ALKALINE PHOSPHATASE 109 U/L (46-116); ALT/SGPT 31 U/L (7.0-40); AST/SGOT 23 U/L (<34); BILIRUBIN,DIRECT 0.2 MG/DL (<0.4); BILIRUBIN,TOTAL 0.7 MG/DL (0.3-1.2); BLOOD UREA NITROGEN 9 MG/DL (9-23); CARBON DIOXIDE LEVEL 27 MMOL/L (20-31); CHLORIDE LEVEL 106 MMOL/L (98-107); CREATININE FOR GFR 0.64 MG/DL (0.55-1.30); GLOMERULAR FILTRATION RATE > 60.0 (>51); GLUCOSE, FASTING 178 MG/DL (60-100); POTASSIUM SERUM 3.9 MMOL/L (3.5-5.1); SODIUM LEVEL 140 MMOL/L (136-145); THYROID STIMULATING HORMONE 0.811 uIU/ML (0.55-4.78); TOTAL PROTEIN 6.6 G/DL (5.7-8.2)
[2022-11-22 15:25] LABS: AMPHETAMINES LEVEL URINE NEGATIVE (NEGATIVE)
[2022-11-22 15:26] LABS: BARBITURATES URINE NEGATIVE (NEGATIVE); BENZODIAZEPINES URINE NEGATIVE (NEGATIVE); CANNABINOIDS URINE NEGATIVE (NEGATIVE); COCAINE METABOLITE URINE NEGATIVE (NEGATIVE); METHADONE URINE NEGATIVE (NEGATIVE); OPIATES URINE NEGATIVE (NEGATIVE); PHENCYCLIDINE URINE NEGATIVE (NEGATIVE)
[2022-11-22 15:34] LABS: FREE T4 1.18 NG/DL (0.89-1.76)
[2022-11-22] MEDS ORDERED: RISP-9 PO (20:03)
[2022-11-22] MEDS ORDERED: METF500T13 PO (20:03)
[2022-11-22] MEDS ORDERED: POTA-150 PO (20:03)
[2022-11-22] MEDS ORDERED: ARIP10TA32 PO (20:03)
[2022-11-22] MEDS ORDERED: METH10TA PO (20:04)
[2022-11-22] MEDS ORDERED: HOME MED LIST COMPLETE! XX SCH (20:05)
[2022-11-22] MEDS ORDERED: MAALOX 30 ML SUSP *UDC PO PRN (21:35)
[2022-11-22] MEDS ORDERED: MOM 30ML SUSPENSION UDC PO PRN (21:35)
[2022-11-22] MEDS ORDERED: ACETAMINOPHEN TAB 650MG DOSE (2X325MG) PO PRN (21:35)
[2022-11-23 02:46] VITALS: BP 122/80
[2022-11-23] MEDS: ARIPiprazole 10 MG TAB PO SCH (08:53)
[2022-11-23] MEDS: metFORMIN (GLUCOPHAGE) 1000MG TABLET PO SCH ×2 (08:53→21:45)
[2022-11-23] MEDS: POTASSIUM CHLORIDE 10MEQ SR TABLET PO SCH ×2 (08:53→21:45)
[2022-11-23 16:22] VITALS: BP 127/61
[2022-11-23] MEDS: risperiDONE 2 MG TAB PO SCH (21:45)
[2022-11-24 06:59] VITALS: BP 146/69
[2022-11-24] MEDS: ARIPiprazole 10 MG TAB PO SCH (09:11)
[2022-11-24] MEDS: POTASSIUM CHLORIDE 10MEQ SR TABLET PO SCH ×2 (09:12→20:06)
[2022-11-24] MEDS: metFORMIN (GLUCOPHAGE) 1000MG TABLET PO SCH ×2 (09:12→20:05)
[2022-11-24 16:42] VITALS: BP 120/73
[2022-11-24] MEDS: risperiDONE 2 MG TAB PO SCH (20:05)
[2022-11-24] MEDS: OLANZapine ORAL DISINTEGRATING TAB 5MG PO PRN (20:06)
[2022-11-24] MEDS: traZODone 50 MG TAB PO PRN (20:06)
[2022-11-25 06:46] VITALS: BP 117/64
[2022-11-25] MEDS: SERTRALINE HCL 50 MG TAB PO SCH (10:19)
[2022-11-25] MEDS: metFORMIN (GLUCOPHAGE) 1000MG TABLET PO SCH ×2 (10:19→21:44)
[2022-11-25] MEDS: risperiDONE 2 MG TAB PO SCH (10:21)
[2022-11-25] MEDS: POTASSIUM CHLORIDE 10MEQ SR TABLET PO SCH ×2 (10:21→21:44)
[2022-11-25] MEDS: ARIPiprazole 10 MG TAB PO SCH (10:26)
[2022-11-25] MEDS ORDERED: PALIPERIDONE PAL 234MG/1.5ML INJ (INVEGA)(FREE PSY INPT ONLY) IM ONE (12:00)
[2022-11-25 18:01] VITALS: BP 124/65
[2022-11-25] MEDS ORDERED: risperiDONE 2 MG TAB PO SCH (21:00)
[2022-11-25] MEDS: traZODone 50 MG TAB PO PRN (21:44)
[2022-11-26 06:01] VITALS: BP 114/55
[2022-11-26] MEDS: metFORMIN (GLUCOPHAGE) 1000MG TABLET PO SCH ×2 (10:07→20:00)
[2022-11-26] MEDS: SERTRALINE HCL 50 MG TAB PO SCH (10:08)
[2022-11-26] MEDS: ARIPiprazole 10 MG TAB PO SCH (10:08)
[2022-11-26] MEDS: POTASSIUM CHLORIDE 10MEQ SR TABLET PO SCH ×2 (10:08→20:00)
[2022-11-26] MEDS: risperiDONE 2 MG TAB PO SCH (10:08)
[2022-11-26 17:42] VITALS: BP 123/65
[2022-11-26] MEDS: traZODone 50 MG TAB PO PRN (19:59)
[2022-11-27 06:27] VITALS: BP 125/56
[2022-11-27] MEDS: risperiDONE 2 MG TAB PO SCH (11:15)
[2022-11-27] MEDS: POTASSIUM CHLORIDE 10MEQ SR TABLET PO SCH ×2 (11:15→21:29)
[2022-11-27] MEDS: metFORMIN (GLUCOPHAGE) 1000MG TABLET PO SCH ×2 (11:15→21:24)
[2022-11-27] MEDS: SERTRALINE HCL 50 MG TAB PO SCH (11:15)
[2022-11-27] MEDS: ARIPiprazole 10 MG TAB PO SCH (11:15)
[2022-11-27] MEDS: IBUPROFEN 400MG TAB PO PRN (14:34)
[2022-11-27] MEDS ORDERED: SIMETHICONE 80MG CHEW TAB PO ONE (17:20)
[2022-11-27] MEDS ORDERED: ALBUTEROL 90 MCG/ACT 8GM HFA INHALER INH PRN (17:30)
[2022-11-27 17:58] VITALS: BP 137/63
[2022-11-27 18:33] LABS: BASO # 0.1 10^3/uL (0.0-0.2); BASO % 0.6 % (0.0-1.0); EOS # 0.2 10^3/uL (0.0-0.5); EOS % 2.6 % (0.0-3.0); HEMATOCRIT 39.8 % (36.0-47.0); HEMOGLOBIN 13.5 g/dl (12.0-15.5); LYMPH % 33.2 % (24.0-44.0); MEAN CORPUSCULAR HEMOGLOBIN 28.9 pg (27.0-33.0); MEAN CORPUSCULAR HGB CONC 33.9 g/dl (32.0-36.5); MEAN CORPUSCULAR VOLUME 85.2 fl (80.0-96.0); MONO # 0.5 10^3/uL (0.0-0.8); MONO % 5.9 % (2.0-8.0); NEUTROPHILS # 5.1 10^3/uL (1.5-8.5); NEUTROPHILS % 57.3 % (36.0-66.0); PLATELET COUNT, AUTOMATED 201 10^3/uL (150-450); RED BLOOD COUNT 4.67 10^6/uL (4.00-5.40); WHITE BLOOD COUNT 8.9 10^3/uL (4.0-10.0)
[2022-11-27 18:59] LABS: ALBUMIN 3.5 G/DL (3.2-5.2); ALKALINE PHOSPHATASE 104 U/L (46-116); ALT/SGPT 31 U/L (7.0-40); AST/SGOT 18 U/L (<34); BILIRUBIN,TOTAL 0.3 MG/DL (0.3-1.2); BLOOD UREA NITROGEN 11 MG/DL (9-23); CALCIUM LEVEL 8.6 MG/DL (8.5-10.1); CARBON DIOXIDE LEVEL 24 MMOL/L (20-31); CHLORIDE LEVEL 107 MMOL/L (98-107); CREATININE FOR GFR 0.64 MG/DL (0.55-1.30); GLOMERULAR FILTRATION RATE > 60.0 (>51); GLUCOSE, FASTING 132 MG/DL (60-100); POTASSIUM SERUM 3.8 MMOL/L (3.5-5.1); SODIUM LEVEL 141 MMOL/L (136-145); TOTAL PROTEIN 6.3 G/DL (5.7-8.2)
[2022-11-27] MEDS ORDERED: NORCO, ANEXSIA 5/325MG TABLET (HYDROcodone/ACETAMINOPHEN) PO ONE (21:35)
[2022-11-28 06:41] VITALS: BP 155/81
[2022-11-28] MEDS: metFORMIN (GLUCOPHAGE) 1000MG TABLET PO SCH ×3 (09:00→21:25)
[2022-11-28] MEDS: SERTRALINE HCL 50 MG TAB PO SCH ×2 (09:00→09:57)
[2022-11-28] MEDS: POTASSIUM CHLORIDE 10MEQ SR TABLET PO SCH ×3 (09:00→21:25)
[2022-11-28] MEDS: ARIPiprazole 10 MG TAB PO SCH ×2 (09:00→09:58)
[2022-11-28] MEDS: SENOKOT S TAB PO SCH ×2 (09:00→09:57)
[2022-11-28] MEDS: BISACODYL 10MG SUPP PR SCH ×2 (09:00→09:58)
[2022-11-28] MEDS: MIRALAX *UNIT DOSE* 17GM PACKET PO SCH ×2 (09:00→09:58)
[2022-11-28] MEDS: risperiDONE 2 MG TAB PO SCH ×2 (09:00→09:59)
[2022-11-28 18:55] VITALS: BP 115/71
[2022-11-29 06:36] VITALS: BP 126/61
[2022-11-29] MEDS ORDERED: PALIPERIDONE PAL 156MG/1ML INJ(INVEGA)(FREE PSY INPT ONLY) IM SCH (09:00)
[2022-11-29] MEDS: MIRALAX *UNIT DOSE* 17GM PACKET PO SCH (09:12)
[2022-11-29] MEDS: SENOKOT S TAB PO SCH (09:13)
[2022-11-29] MEDS: ARIPiprazole 10 MG TAB PO SCH (09:13)
[2022-11-29] MEDS: metFORMIN (GLUCOPHAGE) 1000MG TABLET PO SCH ×2 (09:14→21:21)
[2022-11-29] MEDS: SERTRALINE HCL 50 MG TAB PO SCH (09:14)
[2022-11-29] MEDS: risperiDONE 2 MG TAB PO SCH (09:15)
[2022-11-29] MEDS: POTASSIUM CHLORIDE 10MEQ SR TABLET PO SCH ×2 (09:15→21:22)
[2022-11-29] MEDS: BISACODYL 10MG SUPP PR SCH (09:42)
[2022-11-29] MEDS ORDERED: BENZTROPINE 2 MG TAB PO PRN (10:00)
[2022-11-29 16:18] VITALS: BP 121/70
[2022-11-29 18:08] LABS: HEMOGLOBIN 14.6 g/dl (12.0-15.5); MEAN CORPUSCULAR HEMOGLOBIN 29.5 pg (27.0-33.0); MEAN CORPUSCULAR HGB CONC 34.8 g/dl (32.0-36.5); MEAN CORPUSCULAR VOLUME 84.8 fl (80.0-96.0); PLATELET COUNT, AUTOMATED 227 10^3/uL (150-450); RED BLOOD COUNT 4.95 10^6/uL (4.00-5.40)
[2022-11-29 18:21] LABS: INR 0.93; PROTHROMBIN TIME 12.7 SECONDS (12.5-14.5)
[2022-11-29 18:22] LABS: PARTIAL THROMBOPLASTIN TIME 29.7 SECONDS (24.8-34.2)
[2022-11-29 18:37] LABS: ALBUMIN 3.8 G/DL (3.2-5.2); ALKALINE PHOSPHATASE 110 U/L (46-116); ALT/SGPT 33 U/L (7.0-40); AST/SGOT 19 U/L (<34); BILIRUBIN,TOTAL 0.4 MG/DL (0.3-1.2); BLOOD UREA NITROGEN 13 MG/DL (9-23); CARBON DIOXIDE LEVEL 28 MMOL/L (20-31); CHLORIDE LEVEL 102 MMOL/L (98-107); CREATININE FOR GFR 0.69 MG/DL (0.55-1.30); GLOMERULAR FILTRATION RATE > 60.0 (>51); GLUCOSE, FASTING 154 MG/DL (60-100); POTASSIUM SERUM 3.9 MMOL/L (3.5-5.1); SODIUM LEVEL 138 MMOL/L (136-145)
[2022-11-29 20:25] VITALS: BP 116/70
[2022-11-29] MEDS: traZODone 50 MG TAB PO PRN (21:21)
[2022-11-29] MEDS: SENNA 8.6 MG TAB (SENOKOT) PO SCH (21:22)
[2022-11-29] MEDS: DOCUSATE SODIUM 100MG CAPSULE PO SCH (21:22)
[2022-11-30] VITALS: BP 134/70
[2022-11-30 04:00] VITALS: BP 116/59
[2022-11-30 05:30] VITALS: BP 125/59
[2022-11-30 06:18] VITALS: BP 125/59
[2022-11-30] MEDS: ARIPiprazole 10 MG TAB PO SCH (08:46)
[2022-11-30] MEDS: SERTRALINE HCL 50 MG TAB PO SCH (08:46)
[2022-11-30] MEDS: metFORMIN (GLUCOPHAGE) 1000MG TABLET PO SCH ×2 (08:47→20:43)
[2022-11-30] MEDS: POTASSIUM CHLORIDE 10MEQ SR TABLET PO SCH ×2 (08:47→20:44)
[2022-11-30] MEDS: DOCUSATE SODIUM 100MG CAPSULE PO SCH ×2 (08:47→20:44)
[2022-11-30] MEDS: MIRALAX *UNIT DOSE* 17GM PACKET PO SCH (08:47)
[2022-11-30] MEDS: BISACODYL 10MG SUPP PR SCH (09:00)
[2022-11-30] MEDS: LACTULOSE 20GM/30ML SYRUP UDC PO SCH ×2 (11:59→20:44)
[2022-11-30] MEDS: IBUPROFEN 400MG TAB PO PRN (15:36)
[2022-11-30] MEDS: SENNA 8.6 MG TAB (SENOKOT) PO SCH (20:43)
[2022-12-01 06:11] VITALS: BP 131/70
[2022-12-01] MEDS: BISACODYL 10MG SUPP PR SCH (09:00)
[2022-12-01] MEDS: POTASSIUM CHLORIDE 10MEQ SR TABLET PO SCH ×2 (09:28→22:01)
[2022-12-01] MEDS: SERTRALINE HCL 50 MG TAB PO SCH (09:28)
[2022-12-01] MEDS: DOCUSATE SODIUM 100MG CAPSULE PO SCH ×2 (09:28→22:01)
[2022-12-01] MEDS: ARIPiprazole 10 MG TAB PO SCH (09:28)
[2022-12-01] MEDS: metFORMIN (GLUCOPHAGE) 1000MG TABLET PO SCH ×2 (09:28→22:00)
[2022-12-01] MEDS: LACTULOSE 20GM/30ML SYRUP UDC PO SCH ×2 (09:29→22:00)
[2022-12-01] MEDS: SENNA 8.6 MG TAB (SENOKOT) PO SCH (22:01)
[2022-12-02 06:22] VITALS: BP 130/72
[2022-12-02] MEDS: BISACODYL 10MG SUPP PR SCH (09:00)
[2022-12-02] MEDS: POTASSIUM CHLORIDE 10MEQ SR TABLET PO SCH ×2 (09:45→22:13)
[2022-12-02] MEDS: metFORMIN (GLUCOPHAGE) 1000MG TABLET PO SCH ×2 (09:45→22:12)
[2022-12-02] MEDS: ARIPiprazole 10 MG TAB PO SCH (09:45)
[2022-12-02] MEDS: SERTRALINE HCL 50 MG TAB PO SCH (09:45)
[2022-12-02] MEDS: DOCUSATE SODIUM 100MG CAPSULE PO SCH ×2 (09:45→22:13)
[2022-12-02] MEDS: LACTULOSE 20GM/30ML SYRUP UDC PO SCH ×2 (09:46→22:13)
[2022-12-02 17:49] VITALS: BP 156/63
[2022-12-02] MEDS: CEFUROXIME 500 MG TAB PO SCH (22:12)
[2022-12-02] MEDS: SENNA 8.6 MG TAB (SENOKOT) PO SCH (22:13)
[2022-12-03 06:22] VITALS: BP 127/65
[2022-12-03] MEDS: metFORMIN (GLUCOPHAGE) 1000MG TABLET PO SCH ×2 (08:26→21:37)
[2022-12-03] MEDS: DOCUSATE SODIUM 100MG CAPSULE PO SCH ×2 (08:26→21:37)
[2022-12-03] MEDS: LACTULOSE 20GM/30ML SYRUP UDC PO SCH ×2 (08:26→21:37)
[2022-12-03] MEDS: POTASSIUM CHLORIDE 10MEQ SR TABLET PO SCH ×2 (08:26→21:37)
[2022-12-03] MEDS: ARIPiprazole 10 MG TAB PO SCH (08:26)
[2022-12-03] MEDS: CEFUROXIME 500 MG TAB PO SCH ×2 (08:26→21:37)
[2022-12-03] MEDS: SERTRALINE HCL 50 MG TAB PO SCH (08:27)
[2022-12-03] MEDS: BISACODYL 10MG SUPP PR SCH (08:30)
[2022-12-03 16:23] VITALS: BP 127/66
[2022-12-03] MEDS: SENNA 8.6 MG TAB (SENOKOT) PO SCH (21:37)
[2022-12-04 06:40] VITALS: BP 122/65
[2022-12-04] MEDS: BISACODYL 10MG SUPP PR SCH (09:00)
[2022-12-04] MEDS: SERTRALINE HCL 50 MG TAB PO SCH (09:01)
[2022-12-04] MEDS: LACTULOSE 20GM/30ML SYRUP UDC PO SCH ×2 (09:01→20:59)
[2022-12-04] MEDS: DOCUSATE SODIUM 100MG CAPSULE PO SCH ×2 (09:01→20:59)
[2022-12-04] MEDS: POTASSIUM CHLORIDE 10MEQ SR TABLET PO SCH ×2 (09:01→20:58)
[2022-12-04] MEDS: ARIPiprazole 10 MG TAB PO SCH (09:01)
[2022-12-04] MEDS: metFORMIN (GLUCOPHAGE) 1000MG TABLET PO SCH ×2 (09:01→20:58)
[2022-12-04] MEDS: CEFUROXIME 500 MG TAB PO SCH ×2 (09:02→20:58)
[2022-12-04] MEDS ORDERED: ISOVUE-370 76% 100ML VIAL As Ordered ONE (17:13)
[2022-12-04 17:59] VITALS: BP 119/61
[2022-12-04] MEDS: SENNA 8.6 MG TAB (SENOKOT) PO SCH (20:58)
[2022-12-05 06:10] VITALS: BP 137/60
[2022-12-05] MEDS: metFORMIN (GLUCOPHAGE) 1000MG TABLET PO SCH ×2 (09:21→20:58)
[2022-12-05] MEDS: SERTRALINE HCL 50 MG TAB PO SCH (09:21)
[2022-12-05] MEDS: ARIPiprazole 10 MG TAB PO SCH (09:21)
[2022-12-05] MEDS: LACTULOSE 20GM/30ML SYRUP UDC PO SCH ×2 (09:22→20:58)
[2022-12-05] MEDS: POTASSIUM CHLORIDE 10MEQ SR TABLET PO SCH ×2 (09:22→20:58)
[2022-12-05] MEDS: DOCUSATE SODIUM 100MG CAPSULE PO SCH ×2 (09:22→20:58)
[2022-12-05] MEDS: BISACODYL 10MG SUPP PR SCH (09:22)
[2022-12-05 18:51] VITALS: BP 129/64
[2022-12-05] MEDS: SENNA 8.6 MG TAB (SENOKOT) PO SCH (20:58)
[2022-12-06 05:57] VITALS: BP 138/63
[2022-12-06 06:00] VITALS: BP 138/63
[2022-12-06] MEDS: BISACODYL 10MG SUPP PR SCH (09:00)
[2022-12-06] MEDS: LACTULOSE 20GM/30ML SYRUP UDC PO SCH ×2 (09:24→21:39)
[2022-12-06] MEDS: SERTRALINE HCL 50 MG TAB PO SCH (09:25)
[2022-12-06] MEDS: DOCUSATE SODIUM 100MG CAPSULE PO SCH ×2 (09:25→21:38)
[2022-12-06] MEDS: POTASSIUM CHLORIDE 10MEQ SR TABLET PO SCH ×2 (09:25→21:38)
[2022-12-06] MEDS: metFORMIN (GLUCOPHAGE) 1000MG TABLET PO SCH ×2 (09:25→21:38)
[2022-12-06] MEDS: ARIPiprazole 10 MG TAB PO SCH (09:26)
[2022-12-06 16:11] VITALS: BP 115/62
[2022-12-06] MEDS: risperiDONE 2 MG TAB PO SCH (21:38)
[2022-12-06] MEDS: SENNA 8.6 MG TAB (SENOKOT) PO SCH (21:38)
[2022-12-06] MEDS: IBUPROFEN 400MG TAB PO PRN (21:39)
[2022-12-07 06:17] VITALS: BP 129/61
[2022-12-07] MEDS: BISACODYL 10MG SUPP PR SCH (09:00)
[2022-12-07] MEDS: risperiDONE 2 MG TAB PO SCH ×2 (09:10→21:31)
[2022-12-07] MEDS: metFORMIN (GLUCOPHAGE) 1000MG TABLET PO SCH ×2 (09:10→21:30)
[2022-12-07] MEDS: SERTRALINE HCL 50 MG TAB PO SCH (09:10)
[2022-12-07] MEDS: DOCUSATE SODIUM 100MG CAPSULE PO SCH ×2 (09:10→21:30)
[2022-12-07] MEDS: ARIPiprazole 10 MG TAB PO SCH (09:10)
[2022-12-07] MEDS: POTASSIUM CHLORIDE 10MEQ SR TABLET PO SCH ×2 (09:11→21:30)
[2022-12-07] MEDS: LACTULOSE 20GM/30ML SYRUP UDC PO SCH ×2 (09:11→21:33)
[2022-12-07 16:19] VITALS: BP 115/73
[2022-12-07] MEDS: SENNA 8.6 MG TAB (SENOKOT) PO SCH (21:30)
[2022-12-08 06:47] VITALS: BP 125/77
[2022-12-08] MEDS: metFORMIN (GLUCOPHAGE) 1000MG TABLET PO SCH ×2 (10:32→20:58)
[2022-12-08] MEDS: DOCUSATE SODIUM 100MG CAPSULE PO SCH ×2 (10:33→20:58)
[2022-12-08] MEDS: BISACODYL 10MG SUPP PR SCH (10:33)
[2022-12-08] MEDS: SERTRALINE HCL 50 MG TAB PO SCH (10:33)
[2022-12-08] MEDS: LACTULOSE 20GM/30ML SYRUP UDC PO SCH ×2 (10:33→20:59)
[2022-12-08] MEDS: ARIPiprazole 10 MG TAB PO SCH (10:33)
[2022-12-08] MEDS: POTASSIUM CHLORIDE 10MEQ SR TABLET PO SCH ×2 (10:33→20:58)
[2022-12-08] MEDS: risperiDONE 2 MG TAB PO SCH ×2 (10:34→20:58)
[2022-12-08] MEDS: OLANZapine ORAL DISINTEGRATING TAB 5MG PO PRN (15:32)
[2022-12-08 18:35] VITALS: BP 126/81
[2022-12-08] MEDS: SENNA 8.6 MG TAB (SENOKOT) PO SCH (20:58)
[2022-12-09 05:56] VITALS: BP 113/58
[2022-12-09] MEDS: BISACODYL 10MG SUPP PR SCH (09:00)
[2022-12-09] MEDS: POTASSIUM CHLORIDE 10MEQ SR TABLET PO SCH ×2 (09:28→21:43)
[2022-12-09] MEDS: risperiDONE 2 MG TAB PO SCH ×2 (09:28→21:43)
[2022-12-09] MEDS: ARIPiprazole 10 MG TAB PO SCH (09:28)
[2022-12-09] MEDS: SERTRALINE HCL 50 MG TAB PO SCH (09:28)
[2022-12-09] MEDS: metFORMIN (GLUCOPHAGE) 1000MG TABLET PO SCH ×2 (09:28→21:43)
[2022-12-09] MEDS: DOCUSATE SODIUM 100MG CAPSULE PO SCH ×2 (09:28→21:43)
[2022-12-09] MEDS: LACTULOSE 20GM/30ML SYRUP UDC PO SCH ×2 (09:29→21:43)
[2022-12-09] MEDS ORDERED: ABIL10TA9 PO (11:59)
[2022-12-09] MEDS ORDERED: BENZ2TAB48 PO (11:59)
[2022-12-09] MEDS ORDERED: TRAZ-252 PO (11:59)
[2022-12-09] MEDS ORDERED: INVE156I IM (11:59)
[2022-12-09] MEDS ORDERED: SERT50TA29 PO (11:59)
[2022-12-09] MEDS ORDERED: OLAN5ZYD PO (11:59)
[2022-12-09] MEDS ORDERED: RISP-9 PO (11:59)
[2022-12-09] MEDS: OLANZapine ORAL DISINTEGRATING TAB 5MG PO PRN (16:43)
[2022-12-09 18:40] VITALS: BP 119/83
[2022-12-09] MEDS: SENNA 8.6 MG TAB (SENOKOT) PO SCH (21:43)
[2022-12-10 06:17] VITALS: BP 108/56
[2022-12-10] MEDS: BISACODYL 10MG SUPP PR SCH (09:00)
[2022-12-10] MEDS: metFORMIN (GLUCOPHAGE) 1000MG TABLET PO SCH (10:06)
[2022-12-10] MEDS: LACTULOSE 20GM/30ML SYRUP UDC PO SCH (10:06)
[2022-12-10] MEDS: SERTRALINE HCL 50 MG TAB PO SCH (10:06)
[2022-12-10] MEDS: DOCUSATE SODIUM 100MG CAPSULE PO SCH (10:06)
[2022-12-10] MEDS: risperiDONE 2 MG TAB PO SCH (10:07)
[2022-12-10] MEDS: POTASSIUM CHLORIDE 10MEQ SR TABLET PO SCH (10:07)
[2022-12-10] MEDS: ARIPiprazole 10 MG TAB PO SCH (10:07)
[2022-12-10] MEDS ORDERED: SENN18TA PO (11:12)
[2022-12-10] MEDS ORDERED: MOM30SS2 PO (11:12)
[2022-12-10] MEDS ORDERED: LACT20EL PO (11:13)
[2022-12-11] MEDS ORDERED: ABIL10TA9 PO (13:24)
[2022-12-11] MEDS ORDERED: POTA-150 PO (13:24)
[2022-12-11] MEDS ORDERED: BENZ2TAB48 PO (13:24)
[2022-12-11] MEDS ORDERED: SERT50TA29 PO (13:25)
[2022-12-11] MEDS ORDERED: RISP-9 PO (13:25)
[2022-12-11] MEDS ORDERED: MOM30SS2 PO (13:25)
[2022-12-11] MEDS ORDERED: TRAZ-252 PO (13:25)
== END 2022-12-10 11:45 | disposition home or self-care (01) | DRG 750 ==
LOC: M ED 12:30 → M ED INP 21:31 → M PSY 11-23 01:51
PROVIDERS: ADMIT Student in an Organized Health Care Education/Training Program; ATTEND Student in an Organized Health Care Education/Training Program
DX: F20.9 Schizophrenia, unspecified (principal); E11.9 Type 2 diabetes mellitus without complications; N39.0 Urinary tract infection, site not specified; F41.9 Anxiety disorder, unspecified; K59.00 Constipation, unspecified; E05.00 Thyrotoxicosis with diffuse goiter without thyrotoxic crisis or storm; J44.9 Chronic obstructive pulmonary disease, unspecified; F17.210 Nicotine dependence, cigarettes, uncomplicated; Z79.899 Other long term (current) drug therapy; M54.2 Cervicalgia

== ENCOUNTER → 2023-10-30 | Outpatient (CLI) | payer MEDICAID ==
[~2023-10-30] MED LIST changes: +ABIL10TA9 PO; +ARIP10TA32 PO; +BENZ0.5T2 PO; -BENZ0.5T23 PO; +BENZ2TAB48 PO; +INVE156I IM; +LACT20EL PO; +METF500T13 PO; +MOM30SS2 PO; +OLAN5ZYD PO; +POTA-150 PO; +RISP-106 PO; -RISP-9 PO; +SENN-111 PO; +TRAZ-252 PO
[2023-10-30 15:47] LABS: BASO # 0.1 10^3/uL (0.0-0.2); BASO % 0.4 % (0.0-1.0); EOS # 0.1 10^3/uL (0.0-0.5); EOS % 0.4 % (0.0-3.0); HEMATOCRIT 45.6 % (36.0-47.0); HEMOGLOBIN 15.7 g/dl (12.0-15.5); LYMPH # 1.3 10^3/uL (1.5-5.0); LYMPH % 9.8 % (24.0-44.0); MEAN CORPUSCULAR HEMOGLOBIN 30.1 pg (27.0-33.0); MEAN CORPUSCULAR HGB CONC 34.4 g/dl (32.0-36.5); MEAN CORPUSCULAR VOLUME 87.4 fl (80.0-96.0); MONO # 0.5 10^3/uL (0.0-0.8); MONO % 3.7 % (2.0-8.0); NEUTROPHILS # 11.6 10^3/uL (1.5-8.5); NEUTROPHILS % 85.2 % (36.0-66.0); PLATELET COUNT, AUTOMATED 208 10^3/uL (150-450); RED BLOOD COUNT 5.22 10^6/uL (4.00-5.40); WHITE BLOOD COUNT 13.6 10^3/uL (4.0-10.0)
[2023-10-30 16:53] LABS: HEMOGLOBIN A1c 11.3 % (4.0-6.0)
[2023-10-30 17:10] LABS: ALBUMIN 3.7 G/DL (3.2-5.2); ALKALINE PHOSPHATASE 142 U/L (46-116); ALT/SGPT 21 U/L (7.0-40); AST/SGOT 11 U/L (<34); BILIRUBIN,TOTAL 0.4 MG/DL (0.3-1.2); BLOOD UREA NITROGEN 10 MG/DL (9-23); CALCIUM LEVEL 8.7 MG/DL (8.5-10.1); CARBON DIOXIDE LEVEL 27 MMOL/L (20-31); CHLORIDE LEVEL 99 MMOL/L (98-107); CREATININE FOR GFR 0.62 MG/DL (0.55-1.30); GLOMERULAR FILTRATION RATE > 60.0 (>51); GLUCOSE, FASTING 421 MG/DL (60-100); POTASSIUM SERUM 3.2 MMOL/L (3.5-5.1); SODIUM LEVEL 132 MMOL/L (136-145); THYROID STIMULATING HORMONE 0.603 uIU/ML (0.55-4.78)
== END ==
LOC: M LAB 15:14
PROVIDERS: ATTEND Specialist
DX: F20.9 Schizophrenia, unspecified (principal)